=== PATIENT | male | born 1950 | race Caucasian/White ===

== ENCOUNTER 2019-12-26 07:23 | Outpatient (CLI) | payer MEDICARE, SELFPAY ==
[2019-12-26 08:08] LABS: Hemoglobin A1C 5.9 % (<5.7)
[2019-12-26 08:23] LABS: Anion Gap 10.8 mmol/L (7-16); Blood Urea Nitrogen 20 mg/dL (7-18); Calcium 8.8 mg/dL (8.5-10.1); Carbon Dioxide 27 mmol/L (21-32); Chloride 105 mmol/L (98-108); Estimated Glomerular Filt Rate 60; Glucose 126 mg/dL (70-99); Osmolality Calculated 292 mOsm/kg (285-295); Potassium 3.8 mmol/L (3.5-5.1); Sodium 139 mmol/L (136-145)
== END 2019-12-26 07:24 | disposition home or self-care (01) ==
PROVIDERS: PCP Internal Medicine; Visit Provider Internal Medicine
DX: R73.01 Impaired fasting glucose (principal)
CPT/HCPCS: 36415; 80048; 83036

== ENCOUNTER 2020-04-20 07:54 | Outpatient (CLI) | payer MEDICARE, SELFPAY ==
[2020-04-20 08:21] LABS: Hemoglobin A1C 5.7 % (<5.7)
[2020-04-20 08:51] LABS: Alanine Aminotransferase 44 U/L (16-63); Albumin Level 4.1 g/dL (3.4-5.0); Alkaline Phosphatase 80 U/L (46-116); Anion Gap 9 mmol/L (8-16); Aspartate Amino Transferase 22 U/L (15-37); Bilirubin,Total 0.8 mg/dL (0.00-1.00); Blood Urea Nitrogen 18 mg/dL (7-18); Calcium 8.9 mg/dL (8.5-10.1); Carbon Dioxide 27 mmol/L (21-32); Chloride 105 mmol/L (98-108); Cholesterol 206 mg/dL (0-200); Creatine Kinase 142 U/L (39-308); Estimated Glomerular Filt Rate > 60; Glucose 127 mg/dL (70-99); HDL Direct 53 mg/dL (40-60); LDL Cholesterol Calculated 120 mg/dL (<130); Osmolality Calculated 295 mOsm/kg (285-295); Prostate Specific Antigen 1.2 ng/mL (< OR = 4.0); Sodium 141 mmol/L (136-145); Total Protein 7.4 g/dL (6.4-8.2); Triglycerides 167 mg/dL (0-150)
== END 2020-04-20 07:55 | disposition home or self-care (01) ==
LOC: CHSLAB 07:56
PROVIDERS: PCP Internal Medicine; Visit Provider Internal Medicine
DX: E11.9 Type 2 diabetes mellitus without complications (principal); Z00.00 Encounter for general adult medical examination without abnormal findings; Z12.5 Encounter for screening for malignant neoplasm of prostate
CPT/HCPCS: 36415; 80053; 80061; 82550; 83036; 84153; G0103

== ENCOUNTER 2020-10-09 13:16 | Emergency (ER) | payer MEDICARE, BC, SELFPAY ==
--- NOTE | ~2020-10-09 | XR_ITS ---
EXAMINATION: XR chest 1V portable DATE: 10/09/2020 15:06 INDICATION: Cough and fever. COVID-19 positive. TECHNIQUE: A single frontal view of the chest was obtained. COMPARISON: Chest 2 views 06/19/2019 FINDINGS: There are mild airspace opacities in right lower lung zone and left mid and lower lung zone s. No pleural effusion or pneumothorax. The heart size is normal. IMPRESSION: 1. Mild airspace opacities in right lower lung zone and left mid and lower lung zones, consistent wit h COVID-19 pneumonia. Reviewed, dictated and finalized at location B. IMPRESSION: 1. Mild airspace opacities in right lower lung zone and left mid and lower lung zones, consistent with COVID-19 pneumonia.
[2020-10-09 13:29] VITALS: BP 136/83; PULSE 104; RESP 16; TEMP 36.9; O2SAT 95
[2020-10-09 14:06] LABS: Basophils Absolute Auto 0.02 K/mm3 (0.00-0.10); Basophils Percent Auto 0.3 % (0.0-1.0); Hematocrit 45.1 % (37.0-46.0); Hemoglobin 15.4 g/dL (12.4-15.3); Immature Granulocyte Absolute 0.02 K/mm3 (0.00-0.00); Immature Granulocyte Percent A 0.3 % (0.0-0.0); Lymphocytes Absolute Auto 1.47 K/mm3 (1.10-4.50); Lymphocytes Percent Auto 19.1 % (18.0-42.0); Mean Corpuscular HGB Conc 34.1 g/dL (32.0-36.0); Mean Corpuscular Hemoglobin 31.7 pg (27.0-31.0); Mean Corpuscular Volume 92.8 fL (78.0-102.0); Mean Platelet Volume 10.4 fl (8.7-11.0); Monocytes Percent Auto 5.2 % (2.0-11.0); Neutrophils Absolute Auto 5.8 K/mm3 (1.7-7.2); Neutrophils Percent Auto 75.1 % (50.0-70.0); Platelet Count Result 171 K/mm3 (150-420); Red Blood Count 4.86 M/mm3 (4.70-6.10); Red Cell Distribution Width 11.9 % (11.6-14.4); White Blood Count 7.7 K/mm3 (4.8-10.8)
[2020-10-09 14:06] LABS: Add Urine Microscopic? YES; Bilirubin Urine 1+ (Negative); Blood Urine Negative (Negative); Glucose Urine UA Negative (Negative); Ketones Urine Trace (Negative); Leukocyte Esterase Ur Negative LEU/UL (Negative); Nitrate Urine Negative (Negative); Protein Urine 1+ (Negative); Specific Grav Ur >= 1.030 (1.010-1.020); pH Urine 5.5 (5.0-8.0)
[2020-10-09 14:11] LABS: Appearance Urine Sl Cloudy (Clear); Bacteria Urine Trace /hpf; Color Urine Amber (Yellow); Mucus Urine Moderate /lpf; RBC Urine None seen /hpf (0-2); Squamous Epithelial Cell Urine Few /hpf (Few); WBC Urine None seen /hpf (0-3)
[2020-10-09 14:19] LABS: Partial Thromboplastin Time 29.4 SEC (23.90-30.70); Prothrombin Time 10.9 Seconds (9.50-12.10)
[2020-10-09 14:23] LABS: Lactic Acid Reflex 1.6 mmol/L (0.4-2.0)
[2020-10-09 14:27] LABS: Alanine Aminotransferase 32 U/L (16-63); Albumin Level 3.6 g/dL (3.4-5.0); Alkaline Phosphatase 71 U/L (46-116); Anion Gap 11 mmol/L (8-16); Aspartate Amino Transferase 26 U/L (15-37); Bilirubin,Total 0.6 mg/dL (0.00-1.00); Blood Urea Nitrogen 22 mg/dL (7-18); CRP 13.5 mg/dL (0.0-0.9); Calcium 8.8 mg/dL (8.5-10.1); Carbon Dioxide 27 mmol/L (21-32); Chloride 98 mmol/L (98-108); Estimated CRCL calculation 47 ml/min; Estimated Glomerular Filt Rate 51; Glucose 131 mg/dL (70-99); Osmolality Calculated 287 mOsm/kg (285-295); Sodium 136 mmol/L (136-145); Total Protein 7.8 g/dL (6.4-8.2)
[2020-10-09 14:43] LABS: Influenza A QL RT-PCR Negative (Negative); Influenza B QL RT-PCR Negative (Negative); SARS-CoV-2 RNA PCR Positive (Negative)
--- NOTE | 2020-10-09 14:55 | ED.FEVER ---
HPI - Fever General Chief Complaint: Fever Stated Complaint: fever not feeling well Time Seen by Provider: 10/09/20 14:00 Source: patient Mode of arrival: ambulatory Limitations: no limitations History of Present Illness HPI Narrative: 70-year-old man comes in today complaining of 1 week of low-grade fevers (100 -101 F forehead), body aches, fatigue and poor appetite. Patient states that he has also had a mild cough. He denies chest pain, sputum production, sore throat, nasal congestion, abdominal pain, nausea, vomiting, rash, dysuria or frequent urination. Other than travel to [place] and last month or 2 he has had no sick exposures. Patient states he quit smoking approximately 1 week ago. MD elicited complaint: fever and malaise Onset (ago): week(s) (1) Context: recent travel Exacerbating factors: nothing Relieving factors: other ( NSAIDs) Associated symptoms: myalgias and cough Treatments prior to arrival fever: other (NSAIDs) Related Data Home Medications Medication Instructions Recorded Confirmed No Home Medications 05/06/19 10/09/20 Allergies Allergy/AdvReac Type Severity Reaction Status Date / Time No Known Allergies Allergy Verified 05/06/19 12:18 Review of Systems Review of Systems: All systems reviewed & are unremarkable except as noted in HPI and below Constitutional: Constitutional: Denies chills, Reports fatigue and Reports fever(s) Eyes: Eyes: Denies change in vision and Denies photophobia ENT: Denies dysphagia, Denies nasal congestion and Denies sore throat Cardiovascular: Cardiovascular: Denies chest pain and Denies radiating jaw, neck or arm pain Respiratory: Respiratory: Reports cough, Denies dyspnea and Denies wheezing Gastrointestinal: Gastrointestinal: Denies abdominal pain, Denies diarrhea, Denies nausea and Denies vomiting Genitourinary: Genitourinary: Denies hematuria, Denies dysuria and Denies urinary frequency Musculoskeletal: Musculoskeletal: Denies joint swelling Integumentary/Breasts: Skin/Breast: Denies pruritus, Denies erythema and Denies rash Neurologic: Denies vertigo, Denies dizziness, Denies syncope, Denies focal weakness and Denies numbness Hematologic/Lymphatic: Hematologic/Lymphatic: Denies easy bleeding and Denies easy bruising Allergic/Immunologic: Allergic/Immunologic: Denies lip swelling and Denies throat swelling [facility] Past Medical History Medical History (Updated 10/09/20 @ 15:08 by Lalo Jj MD) Patient denies medical problems Surgical History Surgical History H/O eye surgery Family History Family History Mother , mother of brain aneurysm No problems noted. Father , father of lung cancer No problems noted. Social History Social History Years smoked: 50 Smoking status: Current every day smoker Tobacco type: cigars Alcohol intake: current Substance use: never Exam Const: General: healthy appearing, no acute distress and alert Orientation/consciousness: patient oriented x3 Limitations: no limitations HENMT: Head: normal to inspection Ears: external ears normal, TM's normal bilaterally and EAC's normal General nose exam: Normal nares present Face and sinus: normal facial exam Mouth: Yes moist mucous membranes Throat: posterior oropharynx normal Eyes: Conjunctivae: conjunctivae normal Pupils: Equal, round and reactive pupils present EOM: EOMs intact bilaterally Neck: Neck: normal visual inspection and no lymphadenopathy Other: no tenderness, swelling or masses Resp: Effort & Inspection: normal respiratory effort and not labored Auscultation: clear to auscultation bilaterally, no rales, no rhonchi and no wheezes Cardio: Rate: regular rate Rhythm: regular rhythm Heart sounds: no murmurs Peripheral
== END 2020-10-09 15:26 | disposition home or self-care (01) ==
PROVIDERS: Emergency Provider Emergency Medicine; PCP Internal Medicine
DX: U07.1 COVID-19 (principal); F17.200 Nicotine dependence, unspecified, uncomplicated
CPT/HCPCS: 36415; 71045; 80053; 81001; 83605; 85025; 85610; 85730; 86140; 87040; 87502; 99282; 99283; C9803; U0003; U0005

== ENCOUNTER 2021-10-18 08:45 | Outpatient (CLI) | payer MEDICARE, BC, SELFPAY ==
--- NOTE | ~2021-10-18 | XR_ITS ---
EXAMINATION: XR knee LT 3V, XR knee RT 3V DATE: 10/18/2021 09:50 INDICATION: Left knee pain. Anterior right knee pain. TECHNIQUE: 1. Weight bearing anteroposterior and Kinney, sunrise, and flexed lateral views of the right knee were obtained 2. Weight bearing anteroposterior and Kinney, sunrise, and flexed lateral views of the left knee w ere obtained COMPARISON: None. FINDINGS: No fracture bony joint effusion at either knee. Normal alignment at the left knee. Mild right genu ve ra with severe joint space narrowing at the medial compartment of the right knee most prominent with weightbearing and the knee in flexed position. Mild joint space narrowing at the medial compartment o f the left knee. The joint space in the lateral and patellofemoral compartment of both knees remain n ormal. Soft tissues are unremarkable. IMPRESSION: 1. Medial compartment osteoarthritis at the bilateral knees, severe on the right and mild on the left . Reviewed, dictated and finalized at location B. IMPRESSION: 1. Medial compartment osteoarthritis at the bilateral knees, severe on the righ t and mild on the left.
--- NOTE | ~2021-10-18 | XR_ITS ---
XR chest 2V 10/18/2021 09:51 Indication: Dyspnea. COPD. Smoker. Procedure: 2 view chest Comparison: Comparison to multiple prior studies sequentially, with oldest reviewed study dated 01/2019. Findings: Heart size normal. There is left basilar atelectasis. There are linear infiltrates of the r ight upper lobe which may represent atelectasis or scarring. No focal pneumonia, edema, pleural effus ion or pneumothorax. There is diffuse idiopathic skeletal hyperostosis (DISH) of the thoracic spine. Impression: 1: Linear right upper and left lower lobe infiltrates most likely represent atelectasis or scarring. Reviewed, dictated and finalized at location A. Impression: 1: Linear right upper and left lower lobe infiltrates most likely represent ate lectasis or scarring.
[2021-10-18 09:04] LABS: Basophils Absolute Auto 0.06 K/mm3 (0.00-0.10); Basophils Percent Auto 0.9 % (0.0-1.0); Eosinophils Absolute Auto 0.13 K/mm3 (0.02-0.50); Hematocrit 46.3 % (37.0-46.0); Hemoglobin 15.4 g/dL (12.4-15.3); Immature Granulocyte Absolute 0.03 K/mm3 (0.00-0.00); Immature Granulocyte Percent A 0.5 % (0.0-0.0); Lymphocytes Percent Auto 33.6 % (18.0-42.0); Mean Corpuscular HGB Conc 33.3 g/dL (32.0-36.0); Mean Corpuscular Hemoglobin 31.7 pg (27.0-31.0); Mean Corpuscular Volume 95.3 fL (78.0-102.0); Mean Platelet Volume 10.1 fl (8.7-11.0); Monocytes Percent Auto 6.1 % (2.0-11.0); Neutrophils Absolute Auto 3.7 K/mm3 (1.7-7.2); Neutrophils Percent Auto 56.9 % (50.0-70.0); Platelet Count Result 224 K/mm3 (150-420); Red Blood Count 4.86 M/mm3 (4.70-6.10); White Blood Count 6.5 K/mm3 (4.8-10.8)
[2021-10-18 09:30] LABS: Alanine Aminotransferase 30 U/L (16-63); Alkaline Phosphatase 73 U/L (46-116); Anion Gap 6 mmol/L (8-16); Aspartate Amino Transferase 14 U/L (15-37); Bilirubin,Total 0.8 mg/dL (0.00-1.00); Blood Urea Nitrogen 17 mg/dL (7-18); CRP < 0.5 mg/dL (0.0-0.9); Calcium 8.7 mg/dL (8.5-10.1); Carbon Dioxide 29 mmol/L (21-32); Chloride 103 mmol/L (98-108); Cholesterol 191 mg/dL (0-200); Estimated Glomerular Filt Rate > 60; Glucose 121 mg/dL (70-99); HDL Direct 54 mg/dL (40-60); LDL Cholesterol Calculated 124 mg/dL (<130); Osmolality Calculated 288 mOsm/kg (285-295); Potassium 4.6 mmol/L (3.5-5.1); Prostate Specific Antigen 1.3 ng/mL (< OR = 4.0); Sodium 138 mmol/L (136-145); Total Protein 7.4 g/dL (6.4-8.2); Triglycerides 64 mg/dL (0-150); Uric Acid 5.7 mg/dL (3.5-7.2)
[2021-10-18 09:33] LABS: Hemoglobin A1C 5.6 % (<5.7)
[2021-10-18 10:11] LABS: RFT Charge Test YES; Rheumatoid Factor Screen Positive (Negative); Rheumatoid Factor Titer 1:32/320 (Negative)
[2021-10-18 10:12] LABS: Erythrocyte Sedimentation Rate 6 mm/hr (0-20)
[2021-10-18 12:10] LABS: Add Urine Microscopic? NO; Appearance Urine Clear (Clear); Bilirubin Urine Negative (Negative); Blood Urine Negative (Negative); Color Urine Yellow (Yellow); Glucose Urine UA Negative (Negative); Ketones Urine Negative (Negative); Leukocyte Esterase Ur Negative (Negative); Nitrate Urine Negative (Negative); Protein Urine Negative (Negative); pH Urine 6.5 (5.0-8.0)
[2021-10-18 12:16] LABS: Creatinine Urine 165.36 mg/dL (40-278); MALB Creatinine Ratio 7.8 mg/g (0-30); Microalbumin Urine Random < 13.0 mg/L
[2021-10-21 12:45] LABS: Anti Cyclic Citrullinated Pept <16 Units (<20)
== END 2021-10-18 08:46 | disposition home or self-care (01) ==
LOC: CHSIMG 08:47
PROVIDERS: PCP Internal Medicine; Visit Provider Internal Medicine
DX: I10 Essential (primary) hypertension (principal); R73.01 Impaired fasting glucose; M25.561 Pain in right knee; J44.9 Chronic obstructive pulmonary disease, unspecified; M25.562 Pain in left knee; M17.0 Bilateral primary osteoarthritis of knee; Z12.5 Encounter for screening for malignant neoplasm of prostate; Z00.00 Encounter for general adult medical examination without abnormal findings
CPT/HCPCS: 36415; 71046; 73562; 80053; 80061; 81003; 82043; 83036; 84153; 84550; 85025; 85652; 86140; 86200; 86430; 86431; G0103

== ENCOUNTER 2021-10-20 09:59 | Outpatient (CLI) | payer MEDICARE, BC, SELFPAY ==
--- NOTE | ~2021-10-20 | XR_ITS ---
EXAMINATION: XR hand LT min 3V, XR wrist RT min 3V, XR hand RT min 3V, XR wrist LT min 3V DATE: 10/20/2021 10:27 INDICATION: Rheumatoid arthritis presenting with bilateral hand and wrist pain TECHNIQUE: 1. Posteroanterior, ulnar deviation, oblique, and lateral views of the left wrist were obtained. 2. Dorsal palmar, oblique and lateral views of the left hand were obtained. 3. Posteroanterior, ulnar deviation, oblique, and lateral views of the right wrist were obtained. 4. Dorsal palmar, oblique and lateral views of the right hand were obtained. COMPARISON: None. FINDINGS: Alignment of the left and right hands and wrists is normal. No fracture identified. Polyarticular ost eoarthritis at the bilateral hands and wrists characterized by mild nonuniform joint space narrowing and/or tiny marginal osteophytes. This of moderate severity at the right first metacarpophalangeal leann int and mild at the bilateral distal radioulnar, triscaphe, first and third metacarpophalangeal and m ultiple bilateral interphalangeal joints, the latter with distal predominance. Small pleural effusion s identified at the heads of the bilateral first metacarpals, larger on the left with his peers juxta articular with thin sclerotic margins. No other erosions identified. Soft tissues are unremarkable. IMPRESSION: 1. Polyarticular osteoarthritis at the bilateral hands and wrists, moderate severity at the right fir st metacarpophalangeal joint and otherwise mild. 2. A couple small erosions at the heads of the left and right first metacarpals. Differential would i nclude inflammatory arthritis such as rheumatoid or crystalline arthropathy such as gout. Reviewed, dictated and finalized at location B. IMPRESSION: 1. Polyarticular osteoarthritis at the bilateral hands and wrists, moderate sev erity at the right first metacarpophalangeal joint and otherwise mild. 2. A couple small erosions at the heads of the left and right first metacarpals . Differential would include inflammatory arthritis such as rheumatoid or cryst alline arthropathy such as gout. IMPRESSION: 1. Polyarticular osteoarthritis at the bilateral hands and wrists, moderate sev erity at the right first metacarpophalangeal joint and otherwise mild. 2. A couple small erosions at the heads of the left and right first metacarpals . Differential would include inflammatory arthritis such as rheumatoid or cryst alline arthropathy such as gout. IMPRESSION: 1. Polyarticular osteoarthritis at the bilateral hands and wrists, moderate sev erity at the right first metacarpophalangeal joint and otherwise mild. 2. A couple small erosions at the heads of the left and right first metacarpals . Differential would include inflammatory arthritis such as rheumatoid or cryst alline arthropathy such as gout.
== END 2021-10-20 10:00 | disposition home or self-care (01) ==
LOC: CHSIMG 10:04
PROVIDERS: PCP Internal Medicine; Visit Provider Internal Medicine
DX: M25.532 Pain in left wrist (principal); M25.531 Pain in right wrist; M79.642 Pain in left hand; M79.641 Pain in right hand; M15.9 Polyosteoarthritis, unspecified
CPT/HCPCS: 73110; 73130

== ENCOUNTER 2021-12-08 12:13 | Outpatient (CLI) | payer MEDICARE, BC, SELFPAY ==
[2021-12-08 12:45] LABS: Basophils Absolute Auto 0.06 K/mm3 (0.00-0.10); Basophils Percent Auto 0.8 % (0.0-1.0); Eosinophils Absolute Auto 0.06 K/mm3 (0.02-0.50); Eosinophils Percent Auto 0.8 % (1.0-6.0); Hematocrit 47.1 % (37.0-46.0); Hemoglobin 15.9 g/dL (12.4-15.3); Immature Granulocyte Absolute 0.02 K/mm3 (0.00-0.00); Immature Granulocyte Percent A 0.3 % (0.0-0.0); Lymphocytes Absolute Auto 2.49 K/mm3 (1.10-4.50); Lymphocytes Percent Auto 32.3 % (18.0-42.0); Mean Corpuscular HGB Conc 33.8 g/dL (32.0-36.0); Mean Corpuscular Hemoglobin 31.9 pg (27.0-31.0); Mean Corpuscular Volume 94.4 fL (78.0-102.0); Mean Platelet Volume 10.1 fl (8.7-11.0); Monocytes Absolute Auto 0.49 K/mm3 (0.10-0.90); Monocytes Percent Auto 6.3 % (2.0-11.0); Neutrophils Absolute Auto 4.6 K/mm3 (1.7-7.2); Neutrophils Percent Auto 59.5 % (50.0-70.0); Platelet Count Result 242 K/mm3 (150-420); Red Blood Count 4.99 M/mm3 (4.70-6.10); Red Cell Distribution Width 12.2 % (11.6-14.4); White Blood Count 7.7 K/mm3 (4.8-10.8)
[2021-12-08 12:49] LABS: Add Urine Microscopic? NO; Appearance Urine Clear (Clear); Bilirubin Urine Negative (Negative); Blood Urine Negative (Negative); Color Urine Yellow (Yellow); Glucose Urine UA Negative (Negative); Ketones Urine Negative (Negative); Leukocyte Esterase Ur Negative (Negative); Nitrate Urine Negative (Negative); Protein Urine Negative (Negative); Specific Grav Ur 1.025 (1.010-1.020); Urobilinogen Urine 0.2 mg/dL (0.2-1.0)
[2021-12-08 13:19] LABS: RFT Charge Test YES; Rheumatoid Factor Screen Positive (Negative); Rheumatoid Factor Titer 1:32/320 (Negative)
[2021-12-08 13:29] LABS: Alanine Aminotransferase 35 U/L (16-63); Albumin Level 4.3 g/dL (3.4-5.0); Alkaline Phosphatase 80 U/L (46-116); Anion Gap 5 mmol/L (8-16); Aspartate Amino Transferase 20 U/L (15-37); Bilirubin,Total 0.8 mg/dL (0.00-1.00); Blood Urea Nitrogen 16 mg/dL (7-18); Carbon Dioxide 30 mmol/L (21-32); Chloride 104 mmol/L (98-108); Estimated Glomerular Filt Rate > 60; Free T3 2.51 pg/mL (2.18-3.98); Free T4 Free Thyroxine 0.98 ng/dL (0.76-1.46); Glucose 108 mg/dL (70-99); Osmolality Calculated 290 mOsm/kg (285-295); Potassium 4.8 mmol/L (3.5-5.1); Sodium 139 mmol/L (136-145); Thyroid Stimulating Hormone 1.37 uIU/mL (0.36-3.74); Total Protein 7.9 g/dL (6.4-8.2); Vitamin B12 573 pg/mL (193-986)
[2021-12-08 13:36] LABS: CRP < 0.2 mg/dL (0.0-0.9)
[2021-12-08 14:20] LABS: Erythrocyte Sedimentation Rate 5 mm/hr (0-20)
[2021-12-10 13:18] LABS: RPR Screen Non-Reactive (Non-Reactive)
[2021-12-13 10:41] LABS: Vitamin B1 <6 nmol/L (8-30)
[2021-12-14 15:19] LABS: Anti Cyclic Citrullinated Pept <16 Units (<20)
== END 2021-12-08 12:14 | disposition home or self-care (01) ==
LOC: CHSLAB 12:16
PROVIDERS: PCP Internal Medicine; Visit Provider Internal Medicine
DX: M05.79 Rheumatoid arthritis with rheumatoid factor of multiple sites without organ or systems involvement (principal); R73.01 Impaired fasting glucose; G31.84 Mild cognitive impairment of uncertain or unknown etiology
CPT/HCPCS: 36415; 80053; 81003; 82607; 84425; 84439; 84443; 84481; 85025; 85652; 86038; 86140; 86200; 86430; 86431; 86592

== ENCOUNTER 2021-12-14 12:14 | Outpatient (CLI) | payer MEDICARE, BC, SELFPAY ==
--- NOTE | ~2021-12-14 | US_ITS ---
EXAMINATION: US carotid duplex BI DATE: 12/14/2021 12:55 INDICATION: Speech-language deficit. Transient ischemic episode. TECHNIQUE: Grayscale, color Doppler, and pulsed Doppler images of the cervical carotid arteries were obtained. The degree of vessel stenosis is placed in one of the following categories: normal, <50%, 5 0-69%, >=70% but less than near-occlusion, near-occlusion, or total occlusion. Note that percent sten osis relative to normal distal artery lumen diameter is indirectly measured from velocity measurement s as described by Ernesto, et al. Radiology 2003; [id number]. COMPARISON: None. FINDINGS: RIGHT: The right common carotid artery (CCA) peak systolic velocity (PSV) is 76 cm/s. The right internal car otid artery (ICA) PSV is 69 cm/s. The right ICA end-diastolic velocity (EDV) is 17 cm/s. The right IC A/CCA PSV ratio is 0.9. Grayscale and color Doppler images yield an estimate of <50% diameter reducti on from plaque in the ICA. The external carotid artery (ECA) PSV is 103 cm/s. There is antegrade flow in the right vertebral artery. LEFT: The left CCA PSV is 76 cm/s. The left ICA PSV is 63 cm/s. The left ICA EDV is 19 cm/s. The left ICA/C CA PSV ratio is 0.8. Grayscale and color Doppler images yield an estimate of <50% diameter reduction from plaque in the ICA. The ECA PSV is 132 cm/s. There is antegrade flow in the left vertebral artery . IMPRESSION: 1. <50% stenosis in the right internal carotid artery. 2. <50% stenosis in the left internal carotid artery. Reviewed, dictated and finalized at location A.
== END 2021-12-14 12:15 | disposition home or self-care (01) ==
LOC: CHSIMG 12:16
PROVIDERS: PCP Internal Medicine; Visit Provider Internal Medicine
DX: G45.9 Transient cerebral ischemic attack, unspecified (principal)
CPT/HCPCS: 93880

== ENCOUNTER 2022-01-20 09:58 | Outpatient (CLI) | payer MEDICARE, SELFPAY | END 2022-01-20 09:59 | disposition home or self-care (01) | LOC: CHSLAB 10:00 | PROVIDERS: PCP Internal Medicine; Visit Provider Internal Medicine | DX: E51.9 Thiamine deficiency, unspecified (principal) | CPT/HCPCS: 36415; 84425 ==

== ENCOUNTER 2022-07-27 11:06 | Outpatient (RCR) | payer MEDICARE, BC, SELFPAY ==
--- NOTE | 2022-07-27 13:18 | PTOPEVAL1 ---
Assessment and note entered by JT File, PT Evaluation Information Assessment Status Evaluation Diagnosis gait abnormality, frequent falls Onset 07/22/22 Subjective Information patient reports he is coming to therapy due to trouble walking and getting out of chairs. he reports these issues came on suddenly. he reports no change in his medical history. he reports his last fall was about 1 year ago. he reports he is retired. 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 he reports he does have a positive RA factor. he reports he finds himself catching his feet on objects, and shuffles his feet. he reports he does not use a cane or walker. Reported Pain Level Pain Score 2: Self Report Assessment PT Clinical Summary mr. fair is a 71 yo man who presents to skilled PT services for evaluation and treatment of abnormal gait and unsteady balance. he presents this date with signs and symptoms of potentail neuropathy with moderate fall risk and poor prioprioception. he would benefit from skilled PT interventions to improve his objective/functional deficits and progress towards a return to his prior level safety/functional activity performance and quality of life. Plan of Care Interventions Gait Training,Neuro Re-education,Patient/Caregiver Educati,Therapeutic Activities,Therapeutic Exercise PT Services Indicated Yes Treatment Frequency and 3x weekly for 12 visits Duration These treatments will address the objective and functional deficits as defined above. The patient will be advanced safely and appropriately in order for the patient to progress towards his/her prior level of function. Additional exercises will be introduced and as well as a comprehensive home exercise program upon discharge, if needed, ?to ensure carryover of functional gains achieved in the clinic. This treatment plan has been reviewed and agreement upon by the patient.
--- NOTE | 2022-08-19 15:31 | PTOPPROG ---
Assessment and note entered by JT File, PT Evaluation Information Assessment Status Progress Diagnosis gait abnormality, frequent falls Onset 07/22/22 Subjective Information patient reports he feels good today. he reports no pain. he reports he continues to struggle with walking and balance. Assessment PT Clinical Summary mr. fair presents to skilled PT for his 10th skilled therapy visit this date. as of this date, he continues to benefit from skilled PT services due to his high fall risk and poor ambulation safety. he is making progress towards goals and is improved in functional mobility. he would benefit from continued treatment set forth at his initial evaluation. Plan of Care Interventions Gait Training,Neuro Re-education,Patient/Caregiver Educati,Therapeutic Activities,Therapeutic Exercise PT Services Indicated Yes Treatment Frequency and continue skilled PT 2x weekly for 2 more visits Duration per his initial evaluation These treatments will address the objective and functional deficits as defined above. The patient will be advanced safely and appropriately in order for the patient to progress towards his/her prior level of function. Additional exercises will be introduced and as well as a comprehensive home exercise program upon discharge, if needed, ?to ensure carryover of functional gains achieved in the clinic. This treatment plan has been reviewed and agreement upon by the patient.
--- NOTE | 2022-08-25 15:01 | PTOPREEVAL ---
Assessment and note entered by JT File, PT Evaluation Information Assessment Status Re-evaluation Diagnosis gait abnormality, frequent falls Onset 07/22/22 Subjective Information patient reports he has had no falls this week. he reports he has felt better since starting therapy. he reports he does not yet have an appointment with a neurologist, but reports his MD is concerned about parkinsons disease. he reports he has not been using a cane or a walker. Reported Pain Level Pain Score 0: Self Report Assessment PT Clinical Summary mr. fair presents to skilled PT services for his 12th skilled therapy visit. as of today, he has made progress in balance and ambulation/endurance. however, he continues to display deficits in strength and balance/safety. he would like to continue skilled PT, and displays good progerss thus far. he would benefit from continued skilled PT for further work on balance and safety to decrease fall risk and improve quality of life. Plan of Care Interventions Gait Training,Neuro Re-education,Patient/Caregiver Educati,Therapeutic Activities,Therapeutic Exercise PT Services Indicated Yes Treatment Frequency and continue skilled PT 2x weekly for 6 more visits Duration These treatments will address the objective and functional deficits as defined above. The patient will be advanced safely and appropriately in order for the patient to progress towards his/her prior level of function. Additional exercises will be introduced and as well as a comprehensive home exercise program upon discharge, if needed, ?to ensure carryover of functional gains achieved in the clinic. This treatment plan has been reviewed and agreement upon by the patient.
== END 2022-09-14 16:59 | disposition home or self-care (01) ==
LOC: CHSPT 11:06
PROVIDERS: PCP Nurse Practitioner Family; Visit Provider Nurse Practitioner Family
DX: R29.6 Repeated falls (principal); R26.89 Other abnormalities of gait and mobility
CPT/HCPCS: 97110; 97112; 97161; 97530; 97750

== ENCOUNTER 2022-08-23 11:29 | Outpatient (CLI) | payer MEDICARE, BC, SELFPAY ==
[2022-08-23 12:04] LABS: Appearance Urine Clear (Clear); Basophils Absolute Auto 0.05 K/mm3 (0.00-0.10); Basophils Percent Auto 0.7 % (0.0-1.0); Bilirubin Urine Negative (Negative); Blood Urine Negative (Negative); Color Urine Light Yellow (Yellow); Eosinophils Absolute Auto 0.07 K/mm3 (0.02-0.50); Glucose Urine UA Negative (Negative); Hematocrit 46.1 % (37.0-46.0); Hemoglobin 15.5 g/dL (12.4-15.3); Immature Granulocyte Absolute 0.03 K/mm3 (0.00-0.00); Immature Granulocyte Percent A 0.4 % (0.0-0.0); Ketones Urine Negative (Negative); Leukocyte Esterase Ur Negative (Negative); Lymphocytes Percent Auto 31.7 % (18.0-42.0); Mean Corpuscular HGB Conc 33.6 g/dL (32.0-36.0); Mean Corpuscular Hemoglobin 31.4 pg (27.0-31.0); Mean Corpuscular Volume 93.3 fL (78.0-102.0); Mean Platelet Volume 10.2 fl (8.7-11.0); Monocytes Absolute Auto 0.41 K/mm3 (0.10-0.90); Monocytes Percent Auto 5.9 % (2.0-11.0); Neutrophils Absolute Auto 4.2 K/mm3 (1.7-7.2); Neutrophils Percent Auto 60.3 % (50.0-70.0); Nitrate Urine Negative (Negative); Platelet Count Result 221 K/mm3 (150-420); Protein Urine Negative (Negative); Red Blood Count 4.94 M/mm3 (4.70-6.10); Red Cell Distribution Width 12.1 % (11.6-14.4); Specific Grav Ur <= 1.005 (1.010-1.020); Urobilinogen Urine 0.2 mg/dL (0.2-1.0); White Blood Count 6.9 K/mm3 (4.8-10.8)
[2022-08-23 12:09] LABS: Add Urine Microscopic? NO
[2022-08-23 12:38] LABS: Rheumatoid Factor Screen Negative (Negative)
[2022-08-23 12:58] LABS: Alanine Aminotransferase 39 U/L (16-63); Albumin Level 4.2 g/dL (3.4-5.0); Alkaline Phosphatase 74 U/L (46-116); Anion Gap 10 mmol/L (8-16); Aspartate Amino Transferase 33 U/L (15-37); Bilirubin,Total 0.8 mg/dL (0.00-1.00); Blood Urea Nitrogen 21 mg/dL (7-18); Calcium 9.1 mg/dL (8.5-10.1); Carbon Dioxide 30 mmol/L (21-32); Chloride 104 mmol/L (98-108); Cholesterol 203 mg/dL (0-200); Estimated Glomerular Filt Rate > 60; Free T4 Free Thyroxine 0.94 ng/dL (0.76-1.46); Glucose 116 mg/dL (70-99); HDL Direct 56 mg/dL (40-60); LDL Cholesterol Calculated 123 mg/dL (<130); NT Pro B Type Natriuretic Pept 103 pg/mL (0-125); Osmolality Calculated 302 mOsm/kg (285-295); Potassium 4.3 mmol/L (3.5-5.1); Sodium 144 mmol/L (136-145); Total Protein 7.6 g/dL (6.4-8.2); Triglycerides 118 mg/dL (0-150); Vitamin B12 470 pg/mL (193-986)
[2022-08-23 13:01] LABS: CRP < 0.5 mg/dL (0.0-0.9)
[2022-08-25 20:11] LABS: Anti Cyclic Citrullinated Pept <16 Units (<20)
[2022-08-28 09:21] LABS: Vitamin B1 20 nmol/L (8-30)
== END 2022-08-23 11:30 | disposition home or self-care (01) ==
LOC: CHSLAB 11:32
PROVIDERS: PCP Internal Medicine; Visit Provider Internal Medicine
DX: R73.01 Impaired fasting glucose (principal); G31.84 Mild cognitive impairment of uncertain or unknown etiology; R06.00 Dyspnea, unspecified; M06.9 Rheumatoid arthritis, unspecified; E51.9 Thiamine deficiency, unspecified; E78.5 Hyperlipidemia, unspecified
CPT/HCPCS: 36415; 80053; 80061; 81003; 82607; 82775; 83880; 84425; 84439; 84443; 85025; 86140; 86200; 86430

== ENCOUNTER 2022-08-29 14:28 | Outpatient (CLI) | payer MEDICARE, BC, SELFPAY ==
--- NOTE | ~2022-08-29 | XR_ITS ---
EXAMINATION: XR chest 2V Exam Date/Time: 08/29/2022 15:20 CDT HISTORY: DYSPNEA, COUGH AND CONGESTION 2 WEEKS. Comparison: 10/18/2021. RESULT: Lines, tubes, and devices: None. Lungs and pleura: No focal consolidation, effusion, or pneumothorax. Senescent change. Chronic right upper and bilateral lower lung scar. Cardiomediastinal silhouette: Stable. Other: No acute osseous or upper abdominal finding. IMPRESSION: No acute cardiopulmonary process. Reviewed, dictated and finalized at location K.
--- NOTE | 2022-08-29 01:00 | ECHO_ITS ---
Patient Info Name: Nilson Xiong Age: 72 years : 1950 Gender: Male Ht: 70 in Wt: 218 lbs BSA: 2.24 m2 HR: 87 bpm BP: 141 / 87 mmHg Heart Rhythm: Sinus Rhythm Technical Quality: Fair Exam Date: 08/29/2022 2:22 PM Exam Location: [facility] Patient Status: Outpatient Admit Date: 08/29/2022 Staff Ordering Physician: Anamaria Courtney MD Membership Sales Advisor: Patsy Julio RDCS Attending Provider: Anamaria Courtney MD Referring Physician: Sherwin NELSON; Exam Type: CA echo doppler color flow Study Info Indications - dyspnea, copd Complete two-dimensional, color flow and Doppler transthoracic echocardiogram is performed. Summary 1. Complete two-dimensional, color flow and Doppler transthoracic echocardiogram is performed. 2. Left ventricular chamber dimension is normal. 3. Left ventricular systolic function is normal, estimated at 60-65%. 4. The left ventricular diastolic function is grade I diastolic dysfunction. 5. There is mild aortic valve sclerosis. 6. There is trace tricuspid valve regurgitation. Left Ventricle Tissue doppler E/e' is not measured. Left ventricular chamber dimension is normal. Left ventricular systolic function is normal, estimated at 60-65%. The left ventricular diastolic function is grade I diastolic dysfunction. Right Ventricle Right ventricular chamber dimension is normal. Right ventricular systolic function is normal. Left Atria Left atrial chamber dimension is normal. Right Atria Right atrial chamber dimension is normal. Aortic Valve The aortic valve is trileaflet. There is mild aortic valve sclerosis. There is no aortic valve stenosis. There is no aortic valve regurgitation. Pulmonic Valve There is no pulmonic regurgitation. Mitral Valve There is no mitral valve stenosis. There is no mitral valve regurgitation. Tricuspid Valve RVSP is not calculated due to an inadequate TR jet. There is trace tricuspid valve regurgitation. Pericardium/Pleural There is no pericardial effusion. Inferior Vena Cava Normal inferior vena cava with >50% collapse upon inspiration consistent with normal right atrial pressure, 5 mmHg. Aorta The aortic root size at the sinus of Valsalva is normal. Left Ventricular Outflow Tract Name Value Normal LVOT 2D LVOT Diameter 2.1 cm LVOT Doppler LVOT Peak Velocity 69 cm/s LVOT Peak Gradient 2 mmHg LVOT Mean Gradient 1 mmHg LVOT VTI 11 cm LVOT VTI/AV VTI Ratio 0.9 LVOT Stroke Volume 37 ml Pulmonic Valve Name Value Normal RVOT Doppler RVOT Peak Gradient 2 mmHg PV Doppler PV Peak Velocity
== END 2022-08-29 14:29 | disposition home or self-care (01) ==
LOC: CHSIMG 14:29
PROVIDERS: PCP Internal Medicine; Visit Provider Internal Medicine
DX: R06.00 Dyspnea, unspecified (principal); J44.9 Chronic obstructive pulmonary disease, unspecified; I35.8 Other nonrheumatic aortic valve disorders
CPT/HCPCS: 71046; 93306

== ENCOUNTER 2022-09-06 12:17 | Outpatient (CLI) | payer MEDICARE, BC, SELFPAY | END 2022-09-06 12:18 | disposition home or self-care (01) | LOC: CHSCARD 12:19 | PROVIDERS: PCP Internal Medicine; Visit Provider Internal Medicine | DX: R06.00 Dyspnea, unspecified (principal); J44.9 Chronic obstructive pulmonary disease, unspecified | CPT/HCPCS: 94060; 94726; 94729 ==

== ENCOUNTER 2022-10-11 14:57 | Outpatient (CLI) | payer MEDICARE, BC, SELFPAY ==
[2022-10-11 15:22] LABS: Basophils Absolute Auto 0.05 K/mm3 (0.00-0.10); Basophils Percent Auto 0.6 % (0.0-1.0); Eosinophils Absolute Auto 0.11 K/mm3 (0.02-0.50); Eosinophils Percent Auto 1.3 % (1.0-6.0); Hematocrit 44.3 % (37.0-46.0); Hemoglobin 14.9 g/dL (12.4-15.3); Immature Granulocyte Absolute 0.04 K/mm3 (0.00-0.00); Immature Granulocyte Percent A 0.5 % (0.0-0.0); Lymphocytes Absolute Auto 2.41 K/mm3 (1.10-4.50); Lymphocytes Percent Auto 29.2 % (18.0-42.0); Mean Corpuscular HGB Conc 33.6 g/dL (32.0-36.0); Mean Corpuscular Hemoglobin 31.6 pg (27.0-31.0); Mean Corpuscular Volume 93.9 fL (78.0-102.0); Mean Platelet Volume 10.1 fl (8.7-11.0); Monocytes Absolute Auto 0.47 K/mm3 (0.10-0.90); Monocytes Percent Auto 5.7 % (2.0-11.0); Neutrophils Absolute Auto 5.2 K/mm3 (1.7-7.2); Neutrophils Percent Auto 62.7 % (50.0-70.0); Platelet Count Result 220 K/mm3 (150-420); Red Blood Count 4.72 M/mm3 (4.70-6.10); Red Cell Distribution Width 12.3 % (11.6-14.4); White Blood Count 8.3 K/mm3 (4.8-10.8)
[2022-10-11 16:08] LABS: Alanine Aminotransferase 35 U/L (16-63); Albumin Level 4.1 g/dL (3.4-5.0); Alkaline Phosphatase 77 U/L (46-116); Anion Gap 7 mmol/L (8-16); Aspartate Amino Transferase 26 U/L (15-37); Bilirubin,Total 0.6 mg/dL (0.00-1.00); Blood Urea Nitrogen 18 mg/dL (7-18); Calcium 9.2 mg/dL (8.5-10.1); Carbon Dioxide 32 mmol/L (21-32); Chloride 101 mmol/L (98-108); Estimated Glomerular Filt Rate 55; Glucose 101 mg/dL (70-99); Osmolality Calculated 291 mOsm/kg (285-295); Potassium 5.1 mmol/L (3.5-5.1); Sodium 140 mmol/L (136-145); Total Protein 7.3 g/dL (6.4-8.2)
[2022-10-11 16:18] LABS: CRP < 0.5 mg/dL (0.0-0.9)
[2022-10-11 16:27] LABS: Erythrocyte Sedimentation Rate 11 mm/hr (0-20)
== END 2022-10-11 14:58 | disposition home or self-care (01) ==
LOC: CHSLAB 15:00
PROVIDERS: PCP Internal Medicine; Visit Provider Internal Medicine
DX: R53.83 Other fatigue (principal); I10 Essential (primary) hypertension
CPT/HCPCS: 36415; 80053; 85025; 85652; 86140

== ENCOUNTER 2022-10-19 13:42 | Outpatient (RCR) | payer MEDICARE, BC, SELFPAY ==
--- NOTE | 2022-10-19 15:11 | PTOPEVAL1 ---
Assessment and note entered by Math[facility] Evaluation Information Assessment Status Evaluation Diagnosis ataxia Onset 10/17/22 Subjective Information Pt. states that he recently visited with his doctor who was concerned with his walking and balance. He reports that he had a recent fall about 1 month ago, but does not recall the circumstances. he states that he did have a recent medication added for dementia. He reports that he has been attempting to work outside more often. He states that Reported Pain Level Pain Score 0: Self Report Assessment PT Clinical Summary Pt. enters the clinic due to developed ataxia. He currently presents with impaired balance, impaired gait, generalized l.e. weakness, impaired postural awareness and impaired flexibility. Continued skilled PT is indicated in order to improve these areas to allow the pt. to be able to complete all IADL's without complication. Plan of Care Interventions Neuro Re-education,Patient/Caregiver Educati, Therapeutic Activities,Therapeutic Exercise PT Services Indicated Yes Treatment Frequency and 2x/week x 8 visits Duration These treatments will address the objective and functional deficits as defined above. The patient will be advanced safely and appropriately in order for the patient to progress towards his/her prior level of function. Additional exercises will be introduced and as well as a comprehensive home exercise program upon discharge, if needed, ?to ensure carryover of functional gains achieved in the clinic. This treatment plan has been reviewed and agreement upon by the patient.
--- NOTE | 2022-10-19 15:12 | OPREHPOC ---
Outpatient Therapy Plan of Care This is a Multidisciplinary Plan of Care that may contain components documented by all disciplines (PT, OT, and ST.) PT Problem 1 PT Problem #1 Knowledge Deficit PT Goal 1 Goal Independent with a HEP addressing core stregnth and stability Target Visit 2 PT Problem 2 PT Problem #2 Impaired Balance PT Goal 1 Goal Improve tinetti score to 24 or greater indicating improved safety. Target Visit 8 PT Problem 3 PT Problem #3 Impaired Gait PT Goal 1 Goal Demonstrates ability to complete the 6 minute walk test maintaining ability to pass the stance phase extremity with the swing phase extremity for a distance of 800' or more. Target Visit 8 PT Problem 4 PT Problem #4 Impaired Flexibility PT Goal 1 Goal Increase HS flexibiity to 10 degrees from full knee extension with the 90/90 test in order to improve postural awareness.
--- NOTE | 2022-11-16 13:48 | PTOPDC ---
Assessment and note entered by JT File, PT Evaluation Information Assessment Status Discharge Diagnosis ataxia Onset 10/17/22 Subjective Information patient reports he feels alright today. he reports he continues to have pain in the L hand. he reports he had an xray of the hand and wrist but has not been called about the results. he has an evaluation with OT for his hand/wrist pain this coming monday. Reported Pain Level Pain Score 0,4: Self Report Assessment PT Clinical Summary mr. fair presents to skilled PT for his 8th skilled therapy visit. as of this date, he has met goals for HEP performance and tinetti balance score. he continues to display tightness in the bilateral hamstrings and shortened strides with increased ambulation distance. despite these continued deficits, his best course of action moving forward at this time is to begin a workout/ workout class regimen 3 days weekly. he will have an OT evaluation of the L hand this coming monday. Plan of Care PT Services Indicated Yes
--- NOTE | 2022-11-16 13:48 | OPREHPOC ---
Outpatient Therapy Plan of Care This is a Multidisciplinary Plan of Care that may contain components documented by all disciplines (PT, OT, and ST.) PT Problem 1 PT Problem #1 Knowledge Deficit PT Goal 1 Goal Independent with a HEP addressing core stregnth and stability Target Visit 2 Progress Met PT Problem 2 PT Problem #2 Impaired Balance PT Goal 1 Goal Improve tinetti score to 24 or greater indicating improved safety. Target Visit 8 Progress Met PT Problem 3 PT Problem #3 Impaired Gait PT Goal 1 Goal Demonstrates ability to complete the 6 minute walk test maintaining ability to pass the stance phase extremity with the swing phase extremity for a distance of 800' or more. Target Visit 8 Progress Partially Met PT Problem 4 PT Problem #4 Impaired Flexibility PT Goal 1 Goal Increase HS flexibiity to 10 degrees from full knee extension with the 90/90 test in order to improve postural awareness. Progress Not Met
--- NOTE | 2022-11-22 11:22 | BUOTOPEVAL ---
Assessment and note entered by Briana Plasencia OT Evaluation Information Assessment Status Evaluation Diagnosis L hand pain/weakness Onset 11/10/2022 Subjective Information The patient reports no numbness or tingling in L hand. Reported Pain Level Pain Score 0: Self Report Pain Score 0,4: Self Report Pain Score 0: Self Report Pain Score 0: Self Report Pain Score 1: Self Report Pain Score 0: Self Report Pain Score 0: Self Report Pain Score 0: Self Report Pain Score 0: Self Report Assessment OT Clinical Summary The patient is a 72 year old male who was referred to outpatient OT due to pain and weakness in L UE . The patient's PMH includes but is not limited to arthritis. The patient demonstrates 0-8/10 pain in L hand, inability to make composite grasp and limited wrist AROM affecting his ability to perform daily tasks. The patient previously demonstrated WNL wrist AROM, strength and no pain. The patient requires skilled OT to address current deficits and return to PLOF needed to maintain independence at home. Plan of Care Interventions Therapeutic Exercise,Manual Therapy,Neuro Re- education,Therapeutic Activities,Hot Pack/Cold Pack,Electrical Stimulation,Sensory Integrative Techn,Self-Care/Home Management OT Services Indicated Yes Treatment Frequency and 2x/week for 10 visits. Duration These treatments will address the objective and functional deficits as defined above. The patient will be advanced safely and appropriately in order for the patient to progress towards his/her prior level of function. Additional exercises will be introduced and as well as a comprehensive home exercise program upon discharge, if needed, ?to ensure carryover of functional gains achieved in the clinic. This treatment plan has been reviewed and agreement upon by the patient.
--- NOTE | 2022-12-23 12:01 | OTOPDC ---
Assessment and note entered by Briana Plasencia OT Evaluation Information Assessment Status Discharge Diagnosis L hand pain/weakness Onset 11/10/2022 Subjective Information The patient reports no pain at the time of progress note with pain reported as 7/10 at it's worse but that does not happen too often. The patient stated no sensation issues and that he feels that his arm is stronger with better auto care center manager strength. Reported Pain Level Pain Score 0: Self Report Assessment OT Clinical Summary The patient demonstrates significant progress in auto care center manager strength, wrist AROM, and pain symptoms with the patient demonstrating increased independence with ADLs and mobility. The patient has increased auto care center manager strength that allows him to open doors easier and carry heavy objects. The patient continues to demonstrate muscle fatigue during exercises with therapist educating the patient on the importance of continuing exercises while at home to maintain progress made during therapy. Plan of Care OT Services Indicated No
== END 2022-12-23 17:35 | disposition home or self-care (01) ==
LOC: CHSPT 13:42
PROVIDERS: PCP Internal Medicine; Visit Provider Internal Medicine
DX: R27.0 Ataxia, unspecified (principal); R53.1 Weakness
CPT/HCPCS: 97110; 97112; 97140; 97150; 97161; 97165; 97530

== ENCOUNTER 2022-11-11 11:20 | Outpatient (CLI) | payer MEDICARE, BC, SELFPAY ==
--- NOTE | ~2022-11-11 | XR_ITS ---
EXAM: XR hand LT min 3V, XR wrist LT min 3V DATE: 11/11/2022 11:57 (accession [id number]), 11/11/2022 11:56 (accession [id number]) HISTORY: L wrist and hand pain, muscle weakness x1 month. No injury . COMPARISON: None available. FINDINGS: Normal mineralization. No fracture or dislocation. No lytic or blastic lesion. Mild degene rative changes in the fingers and thumb, trapeziometacarpal joint, triscaphe joint, and radiocarpal j oint. No erosion or periosteal change. Vascular calcification. IMPRESSION: Mild polyarticular osteoarthritis of the hand and wrist. Reviewed, dictated and finalized at location K. IMPRESSION: Mild polyarticular osteoarthritis of the hand and wrist.
[2022-11-11 11:51] LABS: Basophils Absolute Auto 0.05 K/mm3 (0.00-0.10); Basophils Percent Auto 0.8 % (0.0-1.0); Eosinophils Absolute Auto 0.17 K/mm3 (0.02-0.50); Eosinophils Percent Auto 2.6 % (1.0-6.0); Hematocrit 43.9 % (37.0-46.0); Hemoglobin 14.6 g/dL (12.4-15.3); Immature Granulocyte Absolute 0.02 K/mm3 (0.00-0.00); Immature Granulocyte Percent A 0.3 % (0.0-0.0); Lymphocytes Absolute Auto 2.61 K/mm3 (1.10-4.50); Lymphocytes Percent Auto 40.1 % (18.0-42.0); Mean Corpuscular HGB Conc 33.3 g/dL (32.0-36.0); Mean Corpuscular Hemoglobin 31.5 pg (27.0-31.0); Mean Corpuscular Volume 94.6 fL (78.0-102.0); Mean Platelet Volume 9.8 fl (8.7-11.0); Monocytes Absolute Auto 0.41 K/mm3 (0.10-0.90); Monocytes Percent Auto 6.3 % (2.0-11.0); Neutrophils Absolute Auto 3.3 K/mm3 (1.7-7.2); Neutrophils Percent Auto 49.9 % (50.0-70.0); Platelet Count Result 248 K/mm3 (150-420); Red Blood Count 4.64 M/mm3 (4.70-6.10); Red Cell Distribution Width 12.2 % (11.6-14.4); White Blood Count 6.5 K/mm3 (4.8-10.8)
[2022-11-11 12:34] LABS: Rheumatoid Factor Screen Negative (Negative)
[2022-11-11 13:06] LABS: Erythrocyte Sedimentation Rate 18 mm/hr (0-20)
[2022-11-16 20:59] LABS: Cyclic Citrullinated Peptide <16 Units (<20)
[2022-11-18 18:42] LABS: Acetylchol Receptor Binding Ab <0.30 nmol/L
[2022-11-21 06:44] LABS: Reference Lab Test Name MUSK AB
== END 2022-11-11 11:21 | disposition home or self-care (01) ==
PROVIDERS: PCP Internal Medicine; Visit Provider Internal Medicine
DX: M25.532 Pain in left wrist (principal); M62.81 Muscle weakness (generalized); M19.042 Primary osteoarthritis, left hand; M19.032 Primary osteoarthritis, left wrist
CPT/HCPCS: 36415; 73110; 73130; 83519; 84238; 85025; 85652; 86140; 86430

== ENCOUNTER 2023-01-18 13:01 | Outpatient (CLI) | payer MEDICARE, BC, SELFPAY ==
--- NOTE | 2023-01-18 14:00 | NEURO_ITS ---
Impression: # Complains of pain/numbness in hands. # Left ulnar neuropathy across the elbow. # Needle/EMG exam mildly abnormal in left ist dorsal interosseous muscle. Nerve Conduction Studies Anti Sensory Summary Table Stim Site NR Peak (ms) P-T Amp (?V) Site1 Site2 Delta-P (ms) Dist (cm) Jayjay (m/s) Left Median Anti Sensory (2-3nd Digit) Wrist 3.6 28.3 Wrist 2-3nd Digit 3.6 14.0 39 Wrist 3.8 20.7 Wrist 2-3nd Digit 3.6 14.0 39 Right Median Anti Sensory (2-3nd Digit) Wrist 3.2 37.8 Wrist 2-3nd Digit 3.2 14.0 44 Wrist 3.2 26.8 Wrist 2-3nd Digit 3.2 14.0 44 Left Radial Anti Sensory (Base 1st Digit) Wrist 2.0 12.8 Wrist Base 1st Digit 2.0 0.0 Right Radial Anti Sensory (Base 1st Digit) Wrist 2.4 15.4 Wrist Base 1st Digit 2.4 0.0 Left Ulnar Anti Sensory (5th Digit) Wrist 2.7 12.2 Wrist 5th Digit 2.7 14.0 52 Right Ulnar Anti Sensory (5th Digit) Wrist 2.5 13.8 Wrist 5th Digit 2.5 14.0 56 Motor Summary Table Stim Site NR Onset (ms) O-P Amp (mV) Site1 Site2 Delta-0 (ms) Dist (cm) Jayjya (m/s) Left Median Motor (Abd Poll Brev) Wrist 3.7 2.6 Elbow Wrist 6.1 31.0 51 Elbow 9.8 2.3 Right Median Motor (Abd Poll Brev) Wrist 3.1 4.4 Elbow Wrist 5.3 27.0 51 Elbow 8.4 3.8 Left Ulnar Motor (Abd Dig Minimi) Wrist 2.6 6.9 A Elbow Wrist 6.2 29.0 47 A Elbow 8.8 5.4 B Elbow Wrist 3.8 20.0 53 B Elbow 6.4 5.2 Right Ulnar Motor (Abd Dig Minimi) Wrist 2.4 8.4 A Elbow Wrist 5.6 29.0 52 A Elbow 8.0 6.9 F Wave Studies NR F-Lat (ms) L-R F-Lat (ms) Left Median (Mrkrs) (Abd Poll Brev) 29.38 0.68 Right Median (Mrkrs) (Abd Poll Brev) 28.69 0.68 Left Ulnar (Mrkrs) (Abd Dig Min) 29.15 0.24 Right Ulnar (Mrkrs) (Abd Dig Min) 28.91 0.24 EMG Side Muscle Nerve Root Ins Act Fibs Amp Dur Recrt Comment Right 1stDorInt Ulnar C8-T1 Nml Nml Nml >12ms Reduced Right Ext Indicis Radial (Post Int) C7-8 Nml Nml Nml Nml Nml Right Ext Digitorum Radial (Post Int) C7-8 Nml Nml Nml Nml Nml Right BrachioRad Radial C5-6 Nml Nml Nml Nml Nml Right PronatorTeres Median C6-7 Nml Nml Nml Nml Nml Right Abd Poll Brev Median C8-T1 Nml Nml Nml Nml Nml Left 1stDorInt Ulnar C8-T1 Nml Nml Nml Nml Nml Left Ext Indicis Radial (Post Int) C7-8 Nml Nml Nml Nml Nml Left Ext Digitorum Radial (Post Int) C7-8 Nml Nml Nml Nml Nml Left BrachioRad Radial C5-6 Nml Nml Nml Nml Nml Left PronatorTeres Median C6-7 Nml Nml Nml Nml Nml Left Abd Poll Brev Median C8-T1 Nml Nml Nml Nml Nml Right Biceps Musculocut C5-6 Nml Nml Nml Nml Nml Right Triceps Radial C6-7-8 Nml Nml Nml Nml Nml Right Deltoid Axillary C5-6 Nml Nml Nml Nml Nml Left Biceps Musculocut C5-6 Nml Nml Nml Nml Nml Left Triceps Radial C6-7-8 Nml Nml Nml Nml Nml Left Deltoid Axillary C5-6 Nml Nml Nml Nml Nml MTDD
== END 2023-01-18 13:02 | disposition home or self-care (01) ==
LOC: ANHNEURO 13:01
PROVIDERS: PCP Internal Medicine; Visit Provider Internal Medicine
DX: G56.03 Carpal tunnel syndrome, bilateral upper limbs (principal); G56.22 Lesion of ulnar nerve, left upper limb; R94.131 Abnormal electromyogram [EMG]
CPT/HCPCS: 95886; 95911

== ENCOUNTER 2023-03-27 12:59 | Outpatient (RCR) | payer MEDICARE, BC, SELFPAY ==
--- NOTE | 2023-03-27 13:57 | PTOPEVAL1 ---
Assessment and note entered by Mathieu [facility] Evaluation Information Assessment Status Evaluation Diagnosis unsteady gait Onset 03/15/23 Subjective Information Pt. reports that he has had difficulty with his walking for the past year. He went to see a specialist recently, who stated that he had abnormal signal in his basal ganglia. He reports that he has not fallen, but has had several losses of balance. [place], and noticed trouble with walking long distances. He states that he notices that he does shuffle his feet often. He reports that he does fatigue easily and feels his legs get weak. He does have some mild back pain, but nothing that concerns him . He reports that he is having more difficulty with completing light tasks around the home and avoids any heavy lifting. He is currently taking Dopamine, but states that it has not helped. He reports that he would like to participate in PT in order improve his balance Reported Pain Level Pain Score 0: Self Report Assessment PT Clinical Summary Pt. enters the clinic due to developed gait deformity. He has a parkinsonism presentation on this date. Pt. currently presents with impaired gait, impaired proximal l.e. strength, impaired balance and functional decline. Continued skilled PT is recommended in order to improve these areas to allow for improved safety and efficiency with IADL's. Plan of Care PT Services Indicated Yes Treatment Frequency and 2x/week x 10 visits Duration These treatments will address the objective and functional deficits as defined above. The patient will be advanced safely and appropriately in order for the patient to progress towards his/her prior level of function. Additional exercises will be introduced and as well as a comprehensive home exercise program upon discharge, if needed, ?to ensure carryover of functional gains achieved in the clinic. This treatment plan has been reviewed and agreement upon by the patient.
--- NOTE | 2023-03-27 13:58 | OPREHPOC ---
Outpatient Therapy Plan of Care This is a Multidisciplinary Plan of Care that may contain components documented by all disciplines (PT, OT, and ST.) PT Problem 1 PT Problem #1 Knowledge Deficit PT Goal 1 Goal Independent with a HEP addressing strength and mobiltiy. Target Visit 2 PT Problem 2 PT Problem #2 Impaired Balance PT Goal 1 Goal -Pt. will improve his tinetti score to 22 or greater indicating improved balance -Pt. will complete 5 time sit to stand test in less than 15 seconds indicating decreased fall risk. Target Visit 10 PT Problem 3 PT Problem #3 Impaired Gait PT Goal 1 Goal Pt. will complete the 6 minute walk test with a distance of 1000' and require little to no cuing for increasing stride length. PT Problem 4 PT Problem #4 Impaired Strength PT Goal 1 Goal Pt. will present with 4+/5 or greater hip abduction and extension strength in order to improve stability with balance activities. Target Visit 10
--- NOTE | 2023-05-10 15:01 | OPREHPOC ---
Outpatient Therapy Plan of Care This is a Multidisciplinary Plan of Care that may contain components documented by all disciplines (PT, OT, and ST.) PT Problem 1 PT Problem #1 Knowledge Deficit PT Goal 1 Goal Independent with a HEP addressing strength and mobiltiy. Target Visit 2 Progress Met PT Problem 2 PT Problem #2 Impaired Balance PT Goal 1 Goal -Pt. will improve his tinetti score to 22 or greater indicating improved balance -Pt. will complete 5 time sit to stand test in less than 15 seconds indicating decreased fall risk. not met Target Visit 16 Progress Not Met PT Problem 3 PT Problem #3 Impaired Gait PT Goal 1 Goal Pt. will complete the 6 minute walk test with a distance of 1000' and require little to no cuing for increasing stride length. Target Visit 16 Progress Not Met PT Problem 4 PT Problem #4 Impaired Strength PT Goal 1 Goal Pt. will present with 4+/5 or greater hip abduction and extension strength in order to improve stability with balance activities. Target Visit 16 Progress Not Met PT Problem 5 PT Problem #5 Impaired Functional Mobil PT Goal 1 Goal 1. improve lumbar arom flexion to ankles 2. improve lumbar arom ext to 10 degrees 3. improve lumbar arom SB to 20 degrees or better bilat 4. improve bilateral hamstrings flexibility to less than 30 degrees tightness 5. no more than 3/10 pain at worst in the lumbar spine in the last week Target Visit 16
--- NOTE | 2023-05-10 15:01 | PTOPREEVAL ---
Assessment and note entered by JT File, PT Evaluation Information Assessment Status Re-evaluation Diagnosis unsteady gait Onset 03/15/23 Subjective Information patient reports he has had no falls since last therapy visit. however, he has had trouble voiding his bowels. he reports he also has been dealing with some lower back pain recently when standing and walking. Reported Pain Level Pain Score 0: Self Report Assessment PT Clinical Summary mr. fair presents to skilled PT today for his 10th skilled PT visit today for unsteady gait. his therapy thus far has focues on exercises and activities to improve his LE strength, balance, and gait mechanics. he presents today with continued balance deficits (high fall risk per the tinetti, 5x sit to stand), lower back pain with standing/ambulation, and deficits found in lumbar rom/hip flexibility. he would benefit from continued skilled PT to address his remaining balance/ambulation/strength goals, and add new goals for function involving the limitations from his lumbar spine. Plan of Care Interventions Electrical Stimulation,Gait Training,Hot Pack/Cold Pack,Manual Therapy,Neuro Re-education,Patient/ Caregiver Educati,Therapeutic Activities, Therapeutic Exercise PT Services Indicated Yes Treatment Frequency and continue skilled PT 2x weekly for 6 more visits Duration These treatments will address the objective and functional deficits as defined above. The patient will be advanced safely and appropriately in order for the patient to progress towards his/her prior level of function. Additional exercises will be introduced and as well as a comprehensive home exercise program upon discharge, if needed, ?to ensure carryover of functional gains achieved in the clinic. This treatment plan has been reviewed and agreement upon by the patient.
--- NOTE | 2023-06-12 16:38 | PCPTNOTE ---
pt called and cancelled giving no reason
--- NOTE | 2023-06-19 14:52 | OPREHPOC ---
Outpatient Therapy Plan of Care This is a Multidisciplinary Plan of Care that may contain components documented by all disciplines (PT, OT, and ST.) PT Problem 1 PT Problem #1 Knowledge Deficit PT Goal 1 Goal Independent with a HEP addressing strength and mobiltiy. Target Visit 2 Progress Met PT Problem 2 PT Problem #2 Impaired Balance PT Goal 1 Goal -Pt. will improve his tinetti score to 22 or greater indicating improved balance -Pt. will complete 5 time sit to stand test in less than 15 seconds indicating decreased fall risk. not met Target Visit 22 Progress Partially Met Comment 1. met PT Problem 3 PT Problem #3 Impaired Gait PT Goal 1 Goal Pt. will complete the 6 minute walk test with a distance of 1000' and require little to no cuing for increasing stride length. Target Visit 22 Progress Not Met Comment patient fatigues PT Problem 4 PT Problem #4 Impaired Strength PT Goal 1 Goal Pt. will present with 4+/5 or greater hip abduction and extension strength in order to improve stability with balance activities. Target Visit 22 Progress Partially Met Comment abduction met PT Problem 5 PT Problem #5 Impaired Functional Mobil PT Goal 1 Goal 1. improve lumbar arom flexion to ankles 2. improve lumbar arom ext to 10 degrees 3. improve lumbar arom SB to 20 degrees or better bilat 4. improve bilateral hamstrings flexibility to less than 30 degrees tightness 5. no more than 3/10 pain at worst in the lumbar spine in the last week Target Visit 22 Progress Partially Met Comment 1. met
--- NOTE | 2023-06-19 14:52 | PTOPREEVAL ---
Assessment and note entered by Meghann Bryan DPT Evaluation Information Assessment Status Re-evaluation Diagnosis unsteady gait Onset 03/15/23 Subjective Information Patient reports he did have a fall last week when trying to walk fast. He does report some days he feels he can complete house hold tasks with improved balance. He reports he had an MRI of his back that showed stenosis. He states that back pain is not always present but when he is up doing things he notices pain increase. He reports he is seeing a forestry support specialist on Monday. He reports he would benefit from continued PT. Reported Pain Level Pain Score 0: Self Report Assessment PT Clinical Summary Mr. Xiong has been seen for 16 visits of skilled PT with progression towards goals. He demonstrates improved Tinetti balance scoring indicating decreased fall risk as well as improved B hip abduction strength. He continues to fatigue with 6 min walk test and is at a fall risk with 5TSTS testing. He has had one recent fall and would benefit from skilled PT to decrease fall risk and improve ability to complete house hold tasks. Plan of Care Interventions Electrical Stimulation,Gait Training,Hot Pack/Cold Pack,Manual Therapy,Neuro Re-education,Patient/ Caregiver Educati,Therapeutic Activities, Therapeutic Exercise PT Services Indicated Yes Treatment Frequency and continue skilled PT 2x weekly for 6 more visits Duration These treatments will address the objective and functional deficits as defined above. The patient will be advanced safely and appropriately in order for the patient to progress towards his/her prior level of function. Additional exercises will be introduced and as well as a comprehensive home exercise program upon discharge, if needed, ?to ensure carryover of functional gains achieved in the clinic. This treatment plan has been reviewed and agreement upon by the patient.
== END 2023-06-22 15:43 | disposition still patient (30) ==
LOC: CHSPT 12:59
DX: R26.81 Unsteadiness on feet (principal)
CPT/HCPCS: 97110; 97112; 97150; 97161; 97750

== ENCOUNTER 2023-03-29 13:09 | Outpatient (CLI) | payer MEDICARE, SELFPAY ==
[2023-03-29 13:48] LABS: Anion Gap 7 mmol/L (8-16); Blood Urea Nitrogen 18 mg/dL (7-18); Calcium 9.4 mg/dL (8.5-10.1); Carbon Dioxide 31 mmol/L (21-32); Chloride 101 mmol/L (98-108); Estimated Glomerular Filt Rate > 60; Glucose 134 mg/dL (70-99); Osmolality Calculated 291 mOsm/kg (285-295); Potassium 4.2 mmol/L (3.5-5.1); Sodium 139 mmol/L (136-145)
== END 2023-03-29 13:10 | disposition home or self-care (01) ==
LOC: CHSLAB 13:11
PROVIDERS: PCP Internal Medicine; Visit Provider Anesthesiology
DX: Z01.818 Encounter for other preprocedural examination (principal); I10 Essential (primary) hypertension
CPT/HCPCS: 36415; 80048

== ENCOUNTER 2023-04-03 01:32 | Day surgery (SDC) | payer MEDICARE, BC, SELFPAY ==
--- NOTE | 2023-03-27 15:01 | PC.NURSE ---
Report to the Outpatient Waiting Room, entrance under the green pavilion located off [facility], at time _0815 on date __04/03/23 . Planned Procedure Time: __1015 . Time changes happen often and if your time is changed the preop area will call you the afternoon before. - You and your visitor will be asked to self-screen and do not enter if you have any COVID symptoms. - A mask is optional within the hospital at this time. NOTHING TO EAT OR DRINK 8 HOURS PRIOR TO SURGERY Take the following medications with a SIP of water the morning of surgery: __CARBIDOPA-LEVODOPA,_DONEPEZIL DO NOT STOP ANY OF YOUR OTHER PRESCRIPTION MEDICATIONS PRIOR TO SURGERY ?EXCEPT THE FOLLOWING Medications to discontinue per physician ____ASPIRIN PER DR PENA, ALL VITAMINS AND SUPPLEMENTS 3 DAYS PRE OP.LAST DOSE 03/30/23__ Please no make-up, nail faroese, hairspray, perfume, deodorant, or body powder the day of surgery. No jewelry (including any body piercings) or valuables the day of surgery, leave them at home. Please take a shower or bath the night before, or the morning of, surgery with an antibacterial soap. Wear comfortable, loose fitting clothing. Children are encouraged to wear pajamas. - Jewelry must be removed prior to entering the operating room. Rings and piercings that are not removed may be cut off. - The hospital will not accept responsibility for valuables. - Please leave all valuables, including medications, at home the day of surgery. If you are going home after surgery, a licensed auto crane driver must drive you home. - NO public transportation without another adult if you receive anesthesia. - We recommend that an adult stay with you for 24 hours following discharge. - We also recommend that you do not drive, make important decision, drink alcoholic beverages, or take any drugs that were not prescribed by your health care provider for at least 24 hours after your discharge time. For Pediatric surgeries, we recommend two adults accompany the child home. Follow any additional instructions given to you from your surgeon. If you or anyone in your household have experienced Covid symptoms in the past week, please notify your surgeon or the nurse liaison at the phone number below for possible testing. Telephone instructions given to ___SPOUSE CINDY and asked if any additional questions and then verbalized understanding. Patient advised to call surgeon office or pre surgery nurse liaison [phone] if any additional questions.
[2023-03-27 15:17] VITALS: BMI 30.1
--- NOTE | 2023-04-03 06:52 | PM.HPGS ---
History of Present Illness History of Present Illness Consent: Patient seen and examined in pre-operative holding area. No interval change in medical history or symptoms. Continues to desire to proceed with left cubital tunnel release. Reviewed procedure, post-op expectations and risks including but not limited to bleeding, infection, injury to tendon/nerve/vessel, decreased hand function, stiffness, RSD, no change or worsening of symptoms. Discussed possible use of assitants and their participation in the case. Patient stated understanding and signed the consent form wishing to proceed. Chief complaint: left ulnar nerve entrapment at elbow [facility] Past Medical History Medical History Dementia Hypertension FERNANDA (obstructive sleep apnea) Parkinsons disease Surgical History Surgical History H/O eye surgery Family History Family History Mother , mother of brain aneurysm No problems noted. Father , father of lung cancer No problems noted. Social History Social History Smoking packs per day: 1 Smoking cigarettes per day: 20.0 Years smoked: 50 Smoking pack-years: 50.00 Smoking status: Former smoker Tobacco type: cigarettes and cigars Smoking end date: 05/29/12 Additional smoking assessment comments: CURRENTLY SMOKES 3 SMALL CIGARS DAILY Alcohol intake: current Drinks per week: 2 Alcohol use details: VODKA Substance use: current Substance use type: marijuana Last use: 03/24/23 Lack of Transportation: No Lack of Food: Never True Current Housing: I Have Housing Concerned About Future Housing: No Difficulty Paying Gas/Electric Bills: No Difficulty Paying for Meds: No Currently Unemployed: No Education: Trade/Vocational Certificate Difficulty w/ Childcare or Family Care: No Living arrangements: with family Spiritual care concerns: No Meds Home Medications and Allergies Home Medications Medication Instructions Recorded Confirmed Type aspirin 81 mg tablet,delayed 81 mg PO DAILY 03/27/23 03/27/23 History release (Adult Low Dose Aspirin) carbidopa 25 mg-levodopa 100 mg 1.5 tablet PO TID 03/27/23 03/27/23 History tablet cyanocobalamin (vitamin B-12) 1,000 mcg PO DAILY 03/27/23 03/27/23 History 1,000 mcg tablet donepezil 5 mg tablet 5 mg PO DAILY 03/27/23 03/27/23 History losartan 50 mg-hydrochlorothiazide 1 tablet PO DAILY 03/27/23 03/27/23 History 12.5 mg tablet thiamine HCl (vitamin B1) 100 mg 100 mg PO DAILY 03/27/23 03/27/23 History tablet Allergies Allergy/AdvReac Type Severity Reaction Status Date / Time No Known Allergies Allergy Verified 03/27/23 14:47 Exam Resp: Other: ctab Cardio: Other: rrr Assessment and Plan Assessment and plan (1) Entrapment of left ulnar nerve at elbow: Code(s): G56.22 - Lesion of ulnar nerve, left upper limb Status: Acute Plan cont with surgery as above
--- NOTE | 2023-04-03 06:53 | W.PM.PROC2 ---
Procedure Note - Detailed Date of Procedure 04/03/23 Pre-op Diagnosis left ulnar nerve entrapment at elbow Post-op Diagnosis Same Procedure Performed left cubital tunnel release Surgeon Branden Pelletier MD Md Allergy Immunology Mayda Peres PA-C Anesthesia MAC Description of Procedure Patient seen, marked and consented in pre-op area. Taken back to OR on stretcher in supine position. Time out performed with anesthesia, surgeon and staff agreeing on patient's name, site and surgery to be performed. SCDs placed on lower extremities and inflated. Antibiotics were given IV. A tourniquet was placed on the left upper extremity. The left upper extremity was prepped and draped in sterile fashion. After anesthesia administered sedation I injected 10cc 1%lido with epi and 0.5%marcaine plain for local anesthesia. The left upper extremity was exanguinated with an esmarch bandage and tourniquet inflated to 250mmHg. I proceeded with making a longitduinal incision over the end of the cubital tunnel between the two heads of FCU with 15 blade scalpel through skin and dermis. Littler scissors were used to spread through subq down to FCU fascia. I made an incision in the fcu fascia between the two heads. I identified the ulnar nerve and proceeded with complete retrograde release of the cubital tunnel including 6cm proximal for the intermuscular septum. The nerve appeared healthy with visible vaso nervorum. I put elbow through range of motion and there was no subluxation of the nerve I irrigated with normal saline and closed with 3-0 vicryl and 4-0 monocryl. A dressing of exofin, 4x4, skyler, elbow splint and ezra applied after the tourniquet was let down noting the hand was warm and well pefused. The patient was awaken from anesthesia and transferred to recovery in stable conditions. Complications: none EBL: 1cc Dispostiion: Patient tolerated the procedure well and discharged home in stable condition Mayda Peres PA-C was essential throughout procedure for positioning, retraction, closure and dressing placement. [facility] Billing Surgery - Charge Forward: Surgery Billing ([id number]. same code for Mayda Peres PA-C with modifier )
[2023-04-03] MEDS: LACTATED RINGERS 1,000 ML 30 ML IV CONT (08:45)
--- NOTE | 2023-04-03 09:19 | WPDANESEPPF ---
Anes - Initial Pre Proc Eval Procedure: Operation Date: 04/03/23 10:15 Proposed Procedures p Left Cubital Tunnel Release - Branden Pelletier MD Date/Time: 04/03/23 09:19 Surgeon: Branden Pelletier MD Pre Op Diagnosis: left ulnar nerve entrapment at elbow Patient Data Age: 72 Gender: M Height: 1.78 m Weight: 96.1 kg Allergies Allergy/AdvReac Type Severity Reaction Status Date / Time No Known Allergies Allergy Verified 03/27/23 14:47 Home Medications Medication Instructions Recorded Confirmed Type aspirin 81 mg tablet,delayed 81 mg PO DAILY 03/27/23 03/27/23 History release (Adult Low Dose Aspirin) carbidopa 25 mg-levodopa 100 mg 1.5 tablet PO TID 03/27/23 03/27/23 History tablet cyanocobalamin (vitamin B-12) 1,000 mcg PO DAILY 03/27/23 03/27/23 History 1,000 mcg tablet donepezil 5 mg tablet 5 mg PO DAILY 03/27/23 03/27/23 History losartan 50 mg-hydrochlorothiazide 1 tablet PO DAILY 03/27/23 03/27/23 History 12.5 mg tablet thiamine HCl (vitamin B1) 100 mg 100 mg PO DAILY 03/27/23 03/27/23 History tablet Patient hx anesthesia problems: none Family hx anesthesia problems: none Results Review: All pre-operative results and documents have been reviewed as part of the pre-operative evaluation. [facility] Past Medical History Medical History Dementia Hypertension FERNANDA (obstructive sleep apnea) Parkinsons disease Surgical History Surgical History H/O eye surgery Family History Family History Mother , mother of brain aneurysm No problems noted. Father , father of lung cancer No problems noted. Social History Social History Smoking packs per day: 1 Smoking cigarettes per day: 20.0 Years smoked: 50 Smoking pack-years: 50.00 Smoking status: Former smoker Tobacco type: cigarettes and cigars Smoking end date: 05/29/12 Additional smoking assessment comments: CURRENTLY SMOKES 3 SMALL CIGARS DAILY Alcohol intake: current Drinks per week: 2 Alcohol use details: VODKA Substance use: current Substance use type: marijuana Last use: 03/24/23 Lack of Transportation: No Lack of Food: Never True Current Housing: I Have Housing Concerned About Future Housing: No Difficulty Paying Gas/Electric Bills: No Difficulty Paying for Meds: No Currently Unemployed: No Education: Trade/Vocational Certificate Difficulty w/ Childcare or Family Care: No Living arrangements: with family Spiritual care concerns: No Anes - Eval Final PreProcedure Day of Procedure 04/03/23 09:19 Patient weight: obese Heart: regular rate and rhythm Lungs: decreased breath sounds Airway: Mallampati scale class II Neurological: alert and oriented Last oral intake: >/= 8 hours ASA classification: III Emergent: no Anesthetic plan: proceed Anesthesia type and monitoring: general GIVS and standard monitoring Results Review: All pre-operative results and documents have been reviewed as part of the pre-operative evaluation. Informed Consent: The patient's anesthetic plan and its attendant risks and benefits were discussed with the patient/family/POA. Questions were solicited and answers provided to the satisfaction of the patient/family/POA.
[2023-04-03] MEDS: ceFAZolin 2 GM/D5W 50 ML 2 GM/50 ML BAG IVPB (10:00)
[2023-04-03] MEDS: LIDO 1%/EPINEPHRINE 1:100,000 50 ML VIAL 10 ML INFILTRATE (10:11)
[2023-04-03 10:34] VITALS: BP 103/69; PULSE 75; RESP 14; O2SAT 95
[2023-04-03 11:00] VITALS: BP 124/82; PULSE 76; RESP 14; O2SAT 95
== END 2023-04-03 11:39 | disposition home or self-care (01) ==
PROVIDERS: PCP Internal Medicine; Visit Provider Plastic Surgery
PROC: (CPT 64718; principal; 2023-04-03 10:15)
DX: G56.22 Lesion of ulnar nerve, left upper limb (principal); I10 Essential (primary) hypertension; G47.33 Obstructive sleep apnea (adult) (pediatric); G20.A1 Parkinson's disease without dyskinesia, without mention of fluctuations; F02.80 Dementia in other diseases classified elsewhere, unspecified severity, without behavioral disturbance, psychotic disturbance, mood disturbance, and anxiety; Z80.1 Family history of malignant neoplasm of trachea, bronchus and lung; Z87.891 Personal history of nicotine dependence; F12.90 Cannabis use, unspecified, uncomplicated; Z79.82 Long term (current) use of aspirin; E66.9 Obesity, unspecified; Z68.30 Body mass index [BMI] 30.0-30.9, adult
CPT/HCPCS: 64718; J0690; J2405; J2704; J3010; J7120

== ENCOUNTER 2023-06-10 06:40 | Outpatient (CLI) | payer MEDICARE, BC, SELFPAY | END 2023-06-10 06:41 | disposition home or self-care (01) | PROVIDERS: PCP Internal Medicine; Visit Provider Internal Medicine | DX: M48.062 Spinal stenosis, lumbar region with neurogenic claudication (principal) | CPT/HCPCS: 99199 ==

== ENCOUNTER 2023-06-15 12:41 | Outpatient (CLI) | payer MEDICARE, BC, SELFPAY ==
[2023-06-15 13:07] LABS: Appearance Urine Clear (Clear); Basophils Absolute Auto 0.05 K/mm3 (0.00-0.10); Basophils Percent Auto 0.7 % (0.0-1.0); Bilirubin Urine Negative (Negative); Blood Urine Negative (Negative); Color Urine Light Yellow (Yellow); Eosinophils Absolute Auto 0.11 K/mm3 (0.02-0.50); Eosinophils Percent Auto 1.6 % (1.0-6.0); Glucose Urine UA Negative (Negative); Hematocrit 46.2 % (37.0-46.0); Hemoglobin 15.2 g/dL (12.4-15.3); Immature Granulocyte Absolute 0.03 K/mm3 (0.00-0.00); Immature Granulocyte Percent A 0.4 % (0.0-0.0); Ketones Urine Negative (Negative); Leukocyte Esterase Ur Negative (Negative); Lymphocytes Absolute Auto 2.34 K/mm3 (1.10-4.50); Lymphocytes Percent Auto 33.8 % (18.0-42.0); Mean Corpuscular HGB Conc 32.9 g/dL (32.0-36.0); Mean Corpuscular Hemoglobin 30.4 pg (27.0-31.0); Mean Corpuscular Volume 92.4 fL (78.0-102.0); Mean Platelet Volume 10.2 fl (8.7-11.0); Monocytes Absolute Auto 0.45 K/mm3 (0.10-0.90); Monocytes Percent Auto 6.5 % (2.0-11.0); Neutrophils Absolute Auto 3.9 K/mm3 (1.7-7.2); Nitrate Urine Negative (Negative); Platelet Count Result 252 K/mm3 (150-420); Protein Urine Negative (Negative); Red Cell Distribution Width 12.2 % (11.6-14.4); Specific Grav Ur <= 1.005 (1.010-1.020); Urobilinogen Urine 0.2 mg/dL (0.2-1.0); White Blood Count 6.9 K/mm3 (4.8-10.8)
[2023-06-15 13:08] LABS: Add Urine Microscopic? NO
[2023-06-15 13:23] LABS: Hemoglobin A1C 6.1 % (<5.7)
[2023-06-15 14:05] LABS: Erythrocyte Sedimentation Rate 12 mm/hr (0-20)
[2023-06-15 14:19] LABS: Alanine Aminotransferase 44 U/L (16-63); Albumin Level 3.9 g/dL (3.4-5.0); Alkaline Phosphatase 70 U/L (46-116); Anion Gap 5 mmol/L (8-16); Aspartate Amino Transferase 21 U/L (15-37); Bilirubin,Total 0.7 mg/dL (0.00-1.00); Blood Urea Nitrogen 20 mg/dL (7-18); Calcium 8.9 mg/dL (8.5-10.1); Carbon Dioxide 34 mmol/L (21-32); Chloride 99 mmol/L (98-108); Cholesterol 193 mg/dL (0-200); Estimated Glomerular Filt Rate > 60; Ferritin 289 ng/mL (26-388); Free T4 Free Thyroxine 0.98 ng/dL (0.76-1.46); Glucose 116 mg/dL (70-99); HDL Direct 46 mg/dL (40-60); Iron 114 ug/dL (65-175); LDL Cholesterol Calculated 117 mg/dL (<130); Osmolality Calculated 289 mOsm/kg (285-295); Prostate Specific Antigen 1.2 ng/mL (< OR = 4.0); Sodium 138 mmol/L (136-145); Thyroid Stimulating Hormone 1.62 uIU/mL (0.36-3.74); Total Protein 7.3 g/dL (6.4-8.2); Triglycerides 152 mg/dL (0-150); Uric Acid 6.1 mg/dL (3.5-7.2); Vitamin B12 999 pg/mL (193-986)
[2023-06-15 14:27] LABS: CRP < 0.5 mg/dL (0.0-0.9)
[2023-06-18 23:12] LABS: Testosterone Free 68.2 pg/mL (30.0-135.0); Testosterone Total 477 ng/dL (250-1100)
[2023-06-23 05:09] LABS: Vitamin B1 32 nmol/L (8-30)
== END 2023-06-15 12:42 | disposition home or self-care (01) ==
LOC: CHSLAB 12:43
PROVIDERS: PCP Internal Medicine; Visit Provider Internal Medicine
DX: R53.82 Chronic fatigue, unspecified (principal); I10 Essential (primary) hypertension; R73.01 Impaired fasting glucose; Z12.5 Encounter for screening for malignant neoplasm of prostate; G31.84 Mild cognitive impairment of uncertain or unknown etiology; D64.9 Anemia, unspecified
CPT/HCPCS: 36415; 80053; 80061; 81003; 82607; 82728; 83036; 83540; 84153; 84402; 84403; 84425; 84439; 84443; 84550; 85025; 85652; 86140; G0103

== ENCOUNTER 2023-06-17 07:35 | Outpatient (CLI) | payer MEDICARE, BC, SELFPAY ==
--- NOTE | ~2023-06-17 | MR_ITS ---
MRI of the lumbar spine Clinical History: Neurogenic claudication Technique: Axial T2-weighted images, and sagittal T1-weighted, T2-weighted, and T2 fat-sat images wer e acquired. Findings: No acute fracture seen. There is grade 1 retrolisthesis of L2 over L3, and of L3 over L4. N o suspicious bone marrow signal abnormality identified. At L1-L2, there is moderate degenerative disc narrowing with diffuse disc bulge and moderate to advan gavin facet arthropathy. There is moderate to severe central canal stenosis/thecal sac compression. The re is moderate to advanced bilateral neural foraminal narrowing. At L2-L3, there is advanced degenerative disc narrowing. Disc bulge and facet arthropathy result in m oderate central canal stenosis/thecal sac compression. There is severe bilateral neural foraminal com promise. L3-L4, there is moderate degenerative disc narrowing. There is diffuse disc bulge and severe facet ar thropathy, with mild to moderate central canal stenosis. There is severe bilateral neural foraminal c ompromise. At L4-L5, there is disc bulge and severe facet arthropathy. There is minimal central canal stenosis. There is severe bilateral neural foraminal compromise. At L5-S1, there is disc bulge and severe facet arthropathy. No gume central canal stenosis. There is severe bilateral neural foraminal compromise. Paravertebral soft tissues are unremarkable. Impression: Severe degenerative spondylosis throughout the lumbar spine, as detailed above, with diffuse, severe bilateral neural foraminal narrowing. There is multilevel central canal stenosis, as detailed above. Grade 1 retrolisthesis of L2 over L3, and of L3 over L4. Reviewed, dictated and finalized at location . 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 There is multilevel central canal stenosis, as detailed above. Grade 1 retrolisthesis of L2 over L3, and of L3 over L4.
== END 2023-06-17 07:36 | disposition home or self-care (01) ==
PROVIDERS: PCP Internal Medicine; Visit Provider Internal Medicine
DX: M48.062 Spinal stenosis, lumbar region with neurogenic claudication (principal); M43.06 Spondylolysis, lumbar region
CPT/HCPCS: 72148

== ENCOUNTER 2023-06-27 15:48 | Outpatient (RCR) | payer MEDICARE, BC, SELFPAY ==
--- NOTE | 2023-07-12 14:11 | OPREHPOC ---
Outpatient Therapy Plan of Care This is a Multidisciplinary Plan of Care that may contain components documented by all disciplines (PT, OT, and ST.) PT Problem 1 PT Problem #1 Knowledge Deficit PT Goal 1 Goal Independent with a HEP addressing strength and mobiltiy. Target Visit 2 Progress Met PT Problem 2 PT Problem #2 Impaired Balance PT Goal 1 Goal -Pt. will improve his tinetti score to 22 or greater indicating improved balance -Pt. will complete 5 time sit to stand test in less than 15 seconds indicating decreased fall risk. not met Target Visit 22 Progress Met Comment . PT Problem 3 PT Problem #3 Impaired Gait PT Goal 1 Goal Pt. will complete the 6 minute walk test with a distance of 1000' and require little to no cuing for increasing stride length. Target Visit 22 Progress Not Met Comment able to complete 700' PT Problem 4 PT Problem #4 Impaired Strength PT Goal 1 Goal Pt. will present with 4+/5 or greater hip abduction and extension strength in order to improve stability with balance activities. Target Visit 22 Progress Not Met Comment . PT Problem 5 PT Problem #5 Impaired Functional Mobil PT Goal 1 Goal 1. improve lumbar arom flexion to ankles 2. improve lumbar arom ext to 10 degrees 3. improve lumbar arom SB to 20 degrees or better bilat 4. improve bilateral hamstrings flexibility to less than 30 degrees tightness 5. no more than 3/10 pain at worst in the lumbar spine in the last week Target Visit 22 Progress Not Met Comment no met for pain and flexibility
--- NOTE | 2023-07-12 14:11 | PTOPDC ---
Assessment and note entered by Meghann Bryan DPT Evaluation Information Assessment Status Re-evaluation Diagnosis unsteady gait Onset 03/15/23 Subjective Information patient reports he has not had any recent falls. he reports he has been shuffling more today but balance continues to be a challenge. he reports his back pain comes and goes and is getting an injection tomorrow 07/13/23. he reports he is doing his HEP when he can Reported Pain Level Pain Score 3: Self Report Assessment PT Clinical Summary Mr. Xiong has been seen for 22 visits of skilled PT. He continues to have back pain and is getting an injection on 07/12/23. He is able to complete 6 min walk test with 1 seated break today. During POC he has demonstrated improved LE strength, decreased fall risk and increased ambulation distance. He is independent with HEP and is appropriate for DC at this time. Plan of Care PT Services Indicated No
== END 2023-07-12 16:47 | disposition home or self-care (01) ==
LOC: CHSPT 15:48
DX: R26.81 Unsteadiness on feet (principal)
CPT/HCPCS: 97110; 97112; 97530; 97750

== ENCOUNTER 2023-10-25 13:22 | Outpatient (CLI) | payer MEDICARE, BC, SELFPAY ==
--- NOTE | 2023-10-25 14:30 | NEURO_ITS ---
Impression: # Complains of numbness of lower extremities. Not diabetic. # Asymmetrical motor/sensory neuropathy. # Needle/EMG exam with neurogenic changes but no fibs. # Clinical correlation recommended. Nerve Conduction Studies Anti Sensory Summary Table Stim Site NR Peak (ms) P-T Amp (?V) Site1 Site2 Delta-P (ms) Dist (cm) Jayjay (m/s) Left Sup Fibular Anti Sensory (Ant Lat Mall) 14 cm 4.4 19.5 14 cm Ant Lat Mall 4.4 16.0 36 Right Sup Fibular Anti Sensory (Ant Lat Mall) DISPERSED RESPONSE 14 cm NR 14 cm Ant Lat Mall 16.0 Left Sural Anti Sensory (Lat Mall) Calf 4.1 13.8 Calf Lat Mall 4.1 16.0 39 Right Sural Anti Sensory (Lat Mall) Calf 3.3 8.8 Calf Lat Mall 3.3 16.0 48 Motor Summary Table Stim Site NR Onset (ms) O-P Amp (mV) Site1 Site2 Delta-0 (ms) Dist (cm) Jayjay (m/s) Left Peroneal Motor (Vastus Med) Ankle 3.8 1.5 Popit Ankle 9.7 43.0 44 Popit 13.5 1.3 Right Peroneal Motor (Vastus Med) Ankle 4.1 0.4 Popit Ankle 10.2 40.0 39 Popit 14.3 0.5 Left Tibial Motor (Abd Sy Brev) Ankle 4.0 4.0 Knee Ankle 9.7 42.0 43 Knee 13.7 2.6 Right Tibial Motor (Abd Sy Brev) Ankle 4.0 2.7 Knee Ankle 9.6 43.0 45 Knee 13.6 2.9 F Wave Studies NR F-Lat (ms) L-R F-Lat (ms) Left Peroneal (Mrkrs) (EDB) 56.42 Right Peroneal (Mrkrs) (EDB) DISPERSED RESPONSE NR Left Tibial (Mrkrs) (Abd Hallucis) 55.28 Right Tibial (Mrkrs) (Abd Hallucis) DISPERSED RESPONSE NR EMG Side Muscle Nerve Root Ins Act Fibs Amp Dur Recrt Comment Right AntTibialis Dp Br Fibular L4-5 Nml Nml Nml >12ms +1 Right Gastroc Tibial S1-2 Nml Nml Nml >12ms +1 Right Fibularis Long Sup Br Fibular L5-S1 Nml Nml Nml >12ms +1 Right Flex Dig Long Tibial L5-S2 Nml Nml Nml >12ms +1 Right Ext Dig Brev Dp Br Fibular L5, S1 Nml Nml Nml >12ms +1 Left AntTibialis Dp Br Fibular L4-5 Nml Nml Nml >12ms +1 Left Gastroc Tibial S1-2 Nml Nml Nml >12ms +1 Left Fibularis Long Sup Br Fibular L5-S1 Nml Nml Nml >12ms +1 Left Flex Dig Long Tibial L5-S2 Nml Nml Nml >12ms +1 Left Ext Dig Brev Dp Br Fibular L5, S1 Nml Nml Nml >12ms +1 Right QuadratusFem QuadFemoris L4-5, S1 Nml Nml Nml Nml Nml Left QuadratusFem QuadFemoris L4-5, S1 Nml Nml Nml Nml Nml MTDD
== END 2023-10-25 13:23 | disposition home or self-care (01) ==
LOC: ANHNEURO 13:23
PROVIDERS: PCP Internal Medicine; Visit Provider Internal Medicine
DX: G90.09 Other idiopathic peripheral autonomic neuropathy (principal); G62.9 Polyneuropathy, unspecified
CPT/HCPCS: 95886; 95910

== ENCOUNTER 2024-06-11 13:57 | Outpatient (CLI) | payer MEDICARE, BC, SELFPAY ==
--- NOTE | ~2024-06-11 | XR_ITS ---
XR chest 2V Ordering provider: Anamaria Courtney MD History: 73 years Male with . L Base Crepitations . Comparison: None. FINDINGS: MEDIASTINUM: The cardiac silhouette is not enlarged. LUNGS: No infiltrates, effusions or pneumothorax. OTHER: No free air under the diaphragm. Degenerative changes of the spine. IMPRESSION: No acute cardiopulmonary pathology. Reviewed, dictated and finalized at location A. 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
== END 2024-06-11 13:58 | disposition home or self-care (01) ==
PROVIDERS: PCP Internal Medicine; Visit Provider Internal Medicine
DX: R91.8 Other nonspecific abnormal finding of lung field (principal)
CPT/HCPCS: 71046

== ENCOUNTER 2024-07-10 09:25 | Outpatient (RCR) | payer MEDICARE, BC, SELFPAY ==
--- NOTE | 2024-07-10 10:22 | BUPTOPEVAL1 ---
Assessment and note entered by Mathieu Guillermo Evaluation Information Assessment Status Evaluation ICD-10 Condition Codes (PT) Pain in low back M54.50,Radiculopathy, lumbar region M54.16 Onset 03/29/24 Subjective Information Pt. reports that he underwent surgery in early March for the low back. He states that he got some initial relief, but still notices balance issues and pain across the low back. No recent falls. He states that he can stand for 5-10 minutes before having to sit due to pain. He states that he is limited with household duties and moves much more slowly in the community. He states that while pain is an issue, his strength and balance, as well as endurance are more concerning issues. Pt. reports that his goal is to be able to improve his ability to stand. Reported Pain Level Pain Score 4: Self Report Assessment PT Clinical Summary Pt. is a 73 year old male who enters the clinic due to low back pain 4 months post surgical decompression of the lumbar spine. Pt. presents with l.e. weakness, impaired gait, impaired balance, high fall risk, impaired flexibility and functional decline. Continued skilled PT is indicated in order to improve these areas to allow the pt. to be able to achieve his goal of improved walking and improved standing tolerance. Plan of Care Interventions Electrical Stimulation,Gait Training,Hot Pack/Cold Pack,Manual Therapy,Neuro Re-education,Patient/ Caregiver Education,Therapeutic Activities, Therapeutic Exercise PT Services Indicated Yes Treatment Frequency and 2x/week x 10 visits Duration These treatments will address the objective and functional deficits as defined above. The patient will be advanced safely and appropriately in order for the patient to progress towards his/her prior level of function. Additional exercises will be introduced and as well as a comprehensive home exercise program upon discharge, if needed, ?to ensure carryover of functional gains achieved in the clinic. This treatment plan has been reviewed and agreement upon by the patient.
--- NOTE | 2024-07-10 10:23 | OPREHPOC ---
Outpatient Therapy Plan of Care This is a Multidisciplinary Plan of Care that may contain components documented by all disciplines (PT, OT, and ST.) PT Problem 1 PT Problem #1 Knowledge Deficit PT Goal 1 Goal / Goal Update Pt. will be independent with a HEP addressing core stability and strength, as well as flexibility. Target Visit 2 PT Problem 2 PT Problem #2 Impaired Balance PT Goal 1 Goal / Goal Update Pt. will improve his Tinetti score to 22 or greater indicating decreased fall risk Pt. will complete 5 time sit to cable installer repairer 15 seconds or less indicating low fall risk Pt. will complete timed up and go in less than 17 seconds Target Visit 10 PT Problem 3 PT Problem #3 Impaired Gait PT Goal 1 Goal / Goal Update Pt. will demonstrate improve gait efficiency with ability for swing phase extremity to pass the stance phase extremity. Pt. will be able to stand for duration of 15-20 minutes without rest indicating improved standing endurance. Target Visit 10 PT Problem 4 PT Problem #4 Impaired Functional Mobility PT Goal 1 Goal / Goal Update Pt. will present with less than 15% limitation on the Oswestry. Target Visit 10
--- NOTE | 2024-08-13 14:45 | PTOPREEVAL ---
Assessment and note entered by Meghann Manzo DPT Evaluation Information Assessment Status Evaluation Diagnosis low back pain ICD-10 Condition Codes (PT) Pain in low back M54.50,Radiculopathy, lumbar region M54.16 Onset 03/29/24 Subjective Information patient reports some days are better than others. he reports back pain varies. he reports he is able to stand for up to 30 minutes prior to needing to sit down. he reports he has been able to do yard work. lifting increases his pain. Reported Pain Level Pain Score 6: Self Report Assessment PT Clinical Summary Mr. Xiong has been seen for 10 visits of skilled PT with good progressions towards goals. He demonstrates improved balance and improved ability to stand for prolonged periods of time. He continues to be at a fall risk and has difficulty with heavy house hold and yard tasks. He would benefit from skilled PT to address impairments and return to PLOF. Plan of Care Interventions Electrical Stimulation,Gait Training,Hot Pack/Cold Pack,Manual Therapy,Neuro Re-education,Patient/ Caregiver Education,Therapeutic Activities, Therapeutic Exercise PT Services Indicated Yes Treatment Frequency and continue 2x weekly for 8 visits Duration These treatments will address the objective and functional deficits as defined above. The patient will be advanced safely and appropriately in order for the patient to progress towards his/her prior level of function. Additional exercises will be introduced and as well as a comprehensive home exercise program upon discharge, if needed, ?to ensure carryover of functional gains achieved in the clinic. This treatment plan has been reviewed and agreement upon by the patient.
== END 2024-10-08 23:59 | disposition home or self-care (01) ==
LOC: CHSPT 09:25
PROVIDERS: Visit Provider Neurological Surgery
DX: M54.50 Low back pain, unspecified (principal)
CPT/HCPCS: 97110; 97112; 97116; 97150; 97161; 97530

== ENCOUNTER 2024-09-11 11:47 | Outpatient (CLI) | payer MEDICARE, SELFPAY ==
[2024-09-11 12:22] LABS: Hematocrit 46.5 % (37.0-46.0); Hemoglobin 15.3 g/dL (12.4-15.3); Mean Corpuscular HGB Conc 32.9 g/dL (32-36); Mean Corpuscular Hemoglobin 30.5 pg (27.0-31.0); Mean Corpuscular Volume 92.6 fL (78.0-102.0); Platelet Count Result 240 K/mm3 (150-420); Red Blood Count 5.02 M/mm3 (4.70-6.10); Red Cell Distribution Width 12.3 % (11.6-14.4); White Blood Count 6.9 K/mm3 (4.8-10.8)
[2024-09-11 12:23] LABS: Add Urine Microscopic? YES; Appearance Urine Clear (Clear); Bilirubin Urine Negative (Negative); Blood Urine Negative (Negative); Color Urine Yellow (Yellow); Glucose Urine UA Negative (Negative); Ketones Urine Negative (Negative); Leukocyte Esterase Ur Trace (Negative); Nitrate Urine Negative (Negative); Protein Urine Negative (Negative); Specific Grav Ur 1.015 (1.010-1.020)
[2024-09-11 12:35] LABS: Bacteria Urine Rare /hpf; RBC Urine None seen /hpf (0-2); Squamous Epithelial Cell Urine Occasional /hpf (Few); WBC Urine 0-3 /hpf (0-3)
[2024-09-11 12:36] LABS: Mucus Urine Few /lpf
--- OUTSIDE RECORDS SUMMARY | 2024-09-11 13:08 | XMS_ITS | Clinical Summary ---
Author Organization [facility] Address [address] [place] [address] Care Team Providers Care Group Leader Name Role Phone Anamaria Courtney MD Primary Care Provider [phone] Source Comments [facility],non-owned Affiliates and Associated Physician Practices is amultiple site organization consisting of ambulatory clinics and hospital sitesin [place], [place], [place] and [place]. This disclosure is being madepursuant to the Care Everywhere program and may not contain all information available regarding this patient. Last updated 18.[facility] Medications * Be aware that medications may not be up to date on this document. Alwaysverify current medications with the patient. aspirin (Aspirin) 325 MG tablet Take 1 (one) tablet by mouth once daily Active thiamine (Vitamin B-1) 50 MG tablet Take 1 (one) tablet by mouth once daily Active cyanocobalamin (Vitamin B-12) 500 MCG tablet Take 1 (one) tablet by mouth once daily Active losartan - hydroCHLOROthiazide (Hyzaar) 50-12.5 MG tablet Take 1 (one) tablet by mouth once daily Active Active Problems No known active problems Social History Tobacco Use Types Packs/Day Years Used Date Smoking Tobacco: Never Assessed Tobacco Cessation:Counseling Given: Not Answered Alcohol Use Standard Drinks/Week Comments Yes 2 (1 standard drink = 0.6 oz pur e alcohol) EVERY OTHER DAY Sex and Gender Information Value Date Recorded Sex Assigned at Not on file Legal Sex Male 3:32 PM CDT Gender Identity Not on file Sexual Orientation Not on file Last Filed Vital Signs Vital Sign Reading Time Taken Comments Blood Pressure 148/91 11/23/2023 10:18 AM CDT Pulse 66 11/23/2023 10:18 AM CDT Temperature - - Respiratory Rate - - Oxygen Saturation 97% 11/23/2023 10:18 AM CDT Inhaled Oxygen Concentration - - Weight 100.7 kg (222 lb) 11/23/2023 10:18 AM CDT Height - - Body Mass Index - - Plan of Treatment Health Maintenance Due Date Last Done Comments COLOGUARD (AGES 45-75) - COL ON CA SCREENING 1950 COLON MONITORING 1951 COLONOSCOPY - COLON CA SCREENING 1950 CT COLONOGRAPHY - COLON CA SCREENING 1950 Colorectal Cancer Screening 1950 FIT - COLON CA SCREENING 1950 FLEX SIG - COLON CA SCREENING 1950 LIPID TESTING 1950 MEDICARE AWV 12 MONTHS 1950 HEPATITIS C SCREENING 08/11/1969 DTAP/TDAP/TD VACCINES (1 - Tdap) 08/15/1970 PNEUMOCOCCAL VACCINE 50+ (1 of 1 - PCV) 08/15/2001 ZOSTER VACCINE (1 of 2) 08/15/2001 COVID-19 VACCINE ( - 2023-2 5 season) 2024 DEPRESSION SCREENING 05/29/2024 INFLUENZA VACCINE (Season Ended) 2025 Respiratory Syncytial Virus (RSV) Vaccine Pt: or over 60 yrs (1 - 1-dose 75+ series) 08/15/2026 HEPATITIS B VACCINE Aged Out No longe r eligible based on patient's age to complete this topic HIB VACCINE Aged Out No longer eligi ble based on patient's age to complete this topic HPV VACCINE Aged Out No longer eligi ble based on patient's age to complete this topic MENINGOCOCCAL (Group B) VACC INE SHARED DECISION-MAKING Aged Out No longer eligibl e based on patient's age to complete this topic MENINGOCOCCAL GROUPS A/C/Y/W VACCINE Aged Out No longer eligible b ased on patient's age to complete this topic Insurance MEDICARE [facility] Care Teams Group Leader Relationship Specialty Start Date End Date Anamaria Courtney MD [address] [place] [phone] PCP - General Internal Medicine 11/23/23
[2024-09-11 13:52] LABS: Alanine Aminotransferase 32 U/L (16-63); Alkaline Phosphatase 87 U/L (46-116); Anion Gap 8 mmol/L (4-12); Aspartate Amino Transferase 15 U/L (15-37); Bilirubin,Total 0.7 mg/dL (0.00-1.00); Blood Urea Nitrogen 16 mg/dL (7-18); Calcium 9.1 mg/dL (8.5-10.1); Carbon Dioxide 29 mmol/L (21-32); Chloride 106 mmol/L (98-108); Cholesterol 183 mg/dL (0-200); Estimated Glomerular Filt Rate > 60; Free T4 Free Thyroxine 1.06 ng/dL (0.76-1.46); Glucose 105 mg/dL (70-99); HDL Direct 48 mg/dL (40-60); LDL Cholesterol Calculated 115 mg/dL (<130); Osmolality Calculated 297 mOsm/kg (285-295); Potassium 4.6 mmol/L (3.5-5.1); Prostate Specific Antigen 2.1 ng/mL (< OR = 4.0); Sodium 143 mmol/L (136-145); Thyroid Stimulating Hormone 1.96 uIU/mL (0.36-3.74); Total Protein 7.3 g/dL (6.4-8.2); Triglycerides 98 mg/dL (0-150); Vitamin B12 934 pg/mL (193-986)
== END 2024-09-11 11:48 | disposition home or self-care (01) ==
LOC: CHSLAB 11:49
PROVIDERS: PCP Internal Medicine; Visit Provider Internal Medicine
DX: I10 Essential (primary) hypertension (principal); R73.01 Impaired fasting glucose; R53.82 Chronic fatigue, unspecified; G62.9 Polyneuropathy, unspecified; E78.2 Mixed hyperlipidemia; Z12.5 Encounter for screening for malignant neoplasm of prostate
CPT/HCPCS: 36415; 80053; 80061; 81001; 82607; 83036; 84153; 84425; 84439; 84443; 85027; G0103

== ENCOUNTER 2024-10-04 11:44 | Outpatient (CLI) | payer MEDICARE, BC, SELFPAY ==
--- NOTE | ~2024-10-04 | XR_ITS ---
XR hip BI wo pelvis 10/04/2024 12:02 Indication: Chronic bilateral hip pain Procedure: 2 views each hip Comparison: No prior studies for comparison. Findings: Moderate bilateral osteoarthritis of the hips. Loose body lateral to the right hip joint. N o acute fracture or traumatic malalignment. There is mild atherosclerosis. No foreign bodies. Impression: 1: Moderate symmetric bilateral osteoarthritis of the hips. Reviewed, dictated and finalized at location A. Impression: 1: Moderate symmetric bilateral osteoarthritis of the hips.
--- OUTSIDE RECORDS SUMMARY | 2024-10-04 11:48 | XMS_ITS | Clinical Summary ---
Author Organization [facility] Address [address] [place] [address] Care Team Providers Care Credit Relationship Manager Name Role Phone Anamaria Courtney MD Primary Care Provider [phone] Source Comments [facility],non-owned Affiliates and Associated Physician Practices is amultiple site organization consisting of ambulatory clinics and hospital sitesin [place], [place], [place] and [place]. This disclosure is being madepursuant to the Care Everywhere program and may not contain all information available regarding this patient. Last updated 18.[facility] Medications * Be aware that medications may [...] age to complete this topic Insurance MEDICARE PENDING SALE TO [facility] Care Teams Credit Relationship Manager Relationship Specialty Start Date End Date Anamaria Courtney MD [address] [place] [id number] PCP - General Internal Medicine 11/23/23
== END 2024-10-04 11:45 | disposition home or self-care (01) ==
LOC: CHSIMG 11:47
PROVIDERS: PCP Internal Medicine; Visit Provider Internal Medicine
DX: M25.552 Pain in left hip (principal); M25.551 Pain in right hip; M16.0 Bilateral primary osteoarthritis of hip
CPT/HCPCS: 73521

== ENCOUNTER 2024-11-04 13:25 | Outpatient (CLI) | payer MEDICARE, BC, SELFPAY ==
--- NOTE | ~2024-11-04 | XR_ITS ---
EXAMINATION: XR lg joint inject/asp w image, XR lg joint inject/asp add DATE: 11/04/2024 14:48 INDICATION: Bilateral hip pain TECHNIQUE: A time-out was performed to verify the patient's name, date of , and procedure to b e performed. The procedure including the risks, benefits, and alternatives was discussed with the pat ient. Risks discussed included bleeding and infection. The patient understood the risks and agreed to proceed. Attention was first turned to the right hip joint. The skin overlying the right hip joint w as prepped and draped in usual sterile fashion. Anesthetic was administered with 1% lidocaine subcut aneously. A 22 G needle was advanced under fluoroscopic guidance into the joint. Injection of 1 mL of Omnipaque 240 confirmed intra-articular position of the needle. Subsequently, injectate consistin g of 5 mm a 3:1:1 mixture of 1% lidocaine: 40 mg/mL Depo-Medrol and 4 mg Kenalog for a total dosage o f 40 mg Depo-Medrol and 4 mg Kenalog was instilled. Washout of contrast was seen confirming intra-art icular administration. The needle was removed and the entry site was cleaned and dressed. Attention was then turned to the contralateral left hip. The skin overlying the left hip joint was pr epped and draped in usual sterile fashion. Anesthetic was administered with 1% lidocaine subcutaneou sly. A 22 G needle was advanced under fluoroscopic guidance into the joint. Injection of 1 mL of Om nipaque 240 confirmed intra-articular position of the needle. Subsequently, injectate consisting of 5 mm a 3:1:1 mixture of 1% lidocaine: 40 mg/mL Depo-Medrol and 4 mg Kenalog for a total dosage of 40 mg Depo-Medrol and 4 mg Kenalog was instilled. Washout of contrast was seen confirming intra-articula r administration. The needle was removed and the entry site was cleaned and dressed. There were no immediate complications. Fluoroscopy exposure time for both procedures was 0.2 minutes . The total number of images was 5. Total DAP for both procedures was 1.33 Gycm^2 FINDINGS: Real-time fluoroscopy demonstrates the needle and contrast in the first the right hip joint and subsequently the left hip joint. Patient's pain prior to procedure:5/10. Patient's pain followi ng the procedure: 0/10. IMPRESSION: 1. Successful right hip joint injection of local anesthetic and steroid with decrease in the patient' s presenting pain. 2. Successful left hip joint injection of local anesthetic and steroid with decrease in patient's pre senting pain. Reviewed, dictated and finalized at location A. IMPRESSION: 1. Successful right hip joint injection of local anesthetic and steroid with de crease in the patient's presenting pain. 2. Successful left hip joint injection of local anesthetic and steroid with dec rease in patient's presenting pain.
--- OUTSIDE RECORDS SUMMARY | 2024-11-04 14:43 | XMS_ITS | Clinical Summary ---
Author Organization [facility] Address [address] [place] [address] Care Team Providers Care Vibrator Equipment Tester Name Role Phone Anamaria Courtney MD Primary Care Provider [phone] Source Comments [facility],non-owned Affiliates and Associated Physician Practices is amultiple site organization consisting of ambulatory clinics and hospital sitesin [place], [place], [place] and [place]. This disclosure is being madepursuant to the Care Everywhere program and may not contain all information available regarding this patient. Last updated 18.[facility] Medications * Be aware that medications may [...] age to complete this topic Insurance MEDICARE [facility] Care Teams Vibrator Equipment Tester Relationship Specialty Start Date End Date Anamaria Courtney MD [address] [place] [phone] PCP - General Internal Medicine 11/23/23
== END 2024-11-04 13:26 | disposition home or self-care (01) ==
PROVIDERS: PCP Internal Medicine; Visit Provider Internal Medicine
DX: M25.552 Pain in left hip (principal); M25.551 Pain in right hip
CPT/HCPCS: 20610; 77002; J1100; J2003; J3301; Q9966

== ENCOUNTER 2025-04-11 09:09 | Outpatient (CLI) | payer MEDICARE, BC, SELFPAY ==
--- NOTE | ~2025-04-11 | US_ITS ---
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 Findings: Deep Venous System:Normal flow, augmentation and compressibility. No echogenic thrombus identified. The contralateral saphenofemoral junction appears unremarkable. Superficial Venous SystemNo superficial thrombophlebitis. Soft tissues: Soft tissues are unremarkable. Impression: Negative for DVT. Reviewed, dictated and finalized at location P. METRIST/PRACTICE OWNER Impression: Negative for DVT.
--- OUTSIDE RECORDS SUMMARY | 2025-04-11 09:45 | XMS_ITS | Clinical Summary ---
Author Organization [facility] Address [address] [place] [address] Care Team Providers Care Hazmat Cdl Driver Name Role Phone Anamaria Courtney MD Primary Care Provider [phone] Source Comments [facility],non-owned Affiliates and Associated Physician Practices is amultiple site organization consisting of ambulatory clinics and hospital sitesin [place], [place], [place] and [place]. This disclosure is being madepursuant to the Care Everywhere program and may not contain all information available regarding this patient. Last updated 18.[facility] Medications * Be aware that medications may [...] 08/15/2001 ZOSTER VACCINE (1 of 2) 08/15/2001 DEPRESSION SCREENING 05/29/2024 COVID-19 VACCINE (1 - 2023-2 5 season) 2025 INFLUENZA VACCINE (#1) 2025 Respiratory Syncytial Virus (RSV) Vaccine Pt: [...] age to complete this topic Insurance MEDICARE [facility] Care Teams Hazmat Cdl Driver Relationship Specialty Start Date End Date Anamaria Courtney MD [address] [place] [id number] PCP - General Internal Medicine 11/23/23
== END 2025-04-11 09:10 | disposition home or self-care (01) ==
LOC: CHSIMG 09:11
PROVIDERS: PCP Internal Medicine; Visit Provider Internal Medicine
DX: M79.89 Other specified soft tissue disorders (principal)
CPT/HCPCS: 93971

== ENCOUNTER 2025-05-20 10:45 | Outpatient (RCR) | payer MEDICARE, BC, SELFPAY ==
--- NOTE | 2025-04-15 15:59 | OPREHPOC ---
Outpatient Therapy Plan of Care This is a Multidisciplinary Plan of Care that may contain components documented by all disciplines (PT, OT, and ST.) PT Problem 1 PT Problem #1 Knowledge Deficit PT Goal 1 Goal / Goal Update The patient will demonstrate independence in a home exercise program. Target Visit 4 PT Problem 2 PT Problem #2 Impaired Balance PT Goal 1 Goal / Goal Update The patient will demonstrate 20/28 on the Tinetti Balance Scale indicating a lower fall risk. The patient will demonstrate 12 seconds on the TUG test. The patient will complete 5x STS in 15 seconds or less. The patient will report no falls. Target Visit 10 PT Problem 3 PT Problem #3 Impaired Gait PT Goal 1 Goal / Goal Update The patient will ambulate 1,000 feet during the 6 MWT with no shuffling noted. Target Visit 10
--- NOTE | 2025-04-15 15:59 | PTOPEVAL1 ---
Assessment and note entered by Patsy Thompson, PT Evaluation Information Assessment Status Evaluation ICD-10 Condition Codes (PT) Abnormalities of gait and mobility R26.9 Onset 04/11/25 Subjective Information Nilson Xiong reports he continues to have bad balance. He has had falls with several being on his sidewalk which is narrow. He last fell in December and sustained scrapes and bruises. He did have his sidewalk widened which helped decrease falls. He notes he gets very sore when he tries to exercise and has to take several days off when he does. He has tried standing and sitting exercises . He has had blood work that showed his A1-C was off. He is using a cane when he goes to football games but does not use one around the house. He has not been driving much lately because his thinks his reaction times are slow. Reported Pain Level Pain Score 0: Self Report Assessment PT Clinical Summary Nilson Xiong presents with unsteady gait and decreased balance. He has difficulty with walking long distances, walking on uneven terrain, and driving. He objectively demonstrates decreased LE strength, decreased balance, and altered gait. He fatigues with gait easily and begins to shuffle more. He is currently a high fall risk. He will benefit from skilled PT to address these limitations. Plan of Care Interventions Gait Training,Neuro Re-education,Patient/Caregiver Education,Therapeutic Activities,Therapeutic Exercise PT Services Indicated Yes Treatment Frequency and 2 times a week for 10 visits Duration These treatments will address the objective and functional deficits as defined above. The patient will be advanced safely and appropriately in order for the patient to progress towards his/her prior level of function. Additional exercises will be introduced and as well as a comprehensive home exercise program upon discharge, if needed, ?to ensure carryover of functional gains achieved in the clinic. This treatment plan has been reviewed and agreement upon by the patient.
--- NOTE | 2025-05-20 11:34 | OPREHPOC ---
Outpatient Therapy Plan of Care This is a Multidisciplinary Plan of Care that may contain components documented by all disciplines (PT, OT, and ST.) PT Problem 1 PT Problem #1 Knowledge Deficit PT Goal 1 Goal / Goal Update The patient will demonstrate independence in a home exercise program. Target Visit 4 Progress Partially Met PT Problem 2 PT Problem #2 Impaired Balance PT Goal 1 Goal / Goal Update The patient will demonstrate 20/28 on the Tinetti Balance Scale indicating a lower fall risk. not met The patient will demonstrate 12 seconds on the TUG test. not met The patient will complete 5x STS in 15 seconds or less. not met The patient will report no falls. met Target Visit 10 Progress Partially Met PT Problem 3 PT Problem #3 Impaired Gait PT Goal 1 Goal / Goal Update The patient will ambulate 1,000 feet during the 6 MWT with no shuffling noted. Target Visit 10 Progress Not Met
--- NOTE | 2025-05-20 11:35 | PTOPDC ---
Assessment and note entered by JT File, PT Evaluation Information Assessment Status Discharge ICD-10 Condition Codes (PT) Abnormalities of gait and mobility R26.9 Onset 04/11/25 Subjective Information patient reports he feels tired with all activities . however, he reports he has not had any falls since starting skilled PT. he reports he tries to do his exercises at home, but admits he struggles to get them done a lot. he reports he does walk up and down steps frequently to manage his wood burning furnace/stove. he reports he is leaving out of town next week. Reported Pain Level Pain Score 0: Self Report Assessment PT Clinical Summary mr. fair presents to skilled PT for his 9th skilled PT visit. he has made partial progress towards goals as of this date. he is non compliant with daily HEP performance, and presents as a good candidate for fall prevent class bi-weekly. he will DC skilled PT services today, and attempt bi-weekly fall prevention class. Plan of Care PT Services Indicated Yes
== END 2025-05-20 11:37 | disposition home or self-care (01) ==
LOC: CHSPT 10:45
PROVIDERS: PCP Internal Medicine; Visit Provider Internal Medicine
DX: R26.81 Unsteadiness on feet (principal)
CPT/HCPCS: 97110; 97112; 97161; 97530